=== PATIENT | female | born 1990 | race Caucasian/White ===

== ENCOUNTER 2017-06-09 19:41 | Day surgery (SDC) | payer OTHER, SELFPAY ==
[2017-06-09 19:42] VITALS: BP 137/87; PULSE 109; RESP 20; TEMP 37.1; O2SAT 99; BMI 24.7
[2017-06-09] MEDS: Ondansetron 4 MG/2 ML Vial IV (20:11)
[2017-06-09 21:47] LABS: hCG Titer Quant., Serum 26287 mIU/mL (<9 non-preg)
--- NOTE | 2017-06-09 21:51 | US_ITS ---
STUDY: FIRST TRIMESTER OBSTETRICAL ULTRASOUND REASON FOR EXAM: Female, 27 years old. Severe cramping. Beta hCG level of 26,000 LMP: 04/08/2017 TECHNIQUE: Transvaginal PRIOR ULTRASOUND: None. FINDINGS: Within the endometrial cavity there is an irregular appearing gestational sac with a mean sac diameter of 1.99 cm corresponding to gestational age of 7 weeks and 0 days. There is a peripherally located echogenic rounded soft tissue focus. No yolk sac is visualized. There is no demonstrated embryo ( pole). The estimated gestation age (EGA) by LMP is 8 weeks, 6 days. The estimated date of delivery (THERESE) by LMP is 01/13/2018. The estimated gestation age (EGA) by US is 7 weeks, 0 days. The estimated date of delivery (THERESE) by US is 01/26/2018. The uterus measures 6.5 x 5.5 x 4.4 cm. There is no demonstrated uterine fibroid. The cervix is closed. There is fluid within the lower uterine segment extending into the cervix. The right ovary measures 2.5 x 1.2 x 1.5 cm. There is no right ovarian cyst. There is no visualized right adnexal mass or complex lesion. The left ovary measures 3.2 x 2.1 x 2.4 cm. There is no left ovarian cyst. There is no visualized left adnexal mass or complex lesion. There is fluid in the cul de sac. US/Transvaginal w/Preg US IMPRESSION: Findings suspicious for failure. Electronically Signed: Shital Ann MD at 22:48 EST Tel , Service support ,
--- NOTE | 2017-06-09 21:51 | ED.RN ---
lab called with critical lab results. serum preg [id number]. dr. hastings made aware. orders to be placed
--- NOTE | 2017-06-09 22:53 | ED.DCSUM_ITS ---
- ER Visit Summary Date of Service: 06/09/17 Chief Complaint: Cramping pelvic pain with positive test, quantitative hCG 13,000 on June 05. History of Present Illness: The patient is a 27 F who presents because of severe cramping pelvic pain. She denies orthostatic symptoms. She denies pain referred her shoulder. She had a quantitative hCG on Saturday which was 13, 000. She had an ultrasound that revealed only a gestational sac. She was told that she had demise and was scheduled for an outpatient D&C on June 14 if she did not have a spontaneous AB. She states she has O+ blood. She denies history of endometriosis, ovarian cyst, STD or salpingitis. She does complain of nausea without vomiting. She has no other complaints. Physical Examination: No signs are marked for an elevated blood pressure 137/ 87. She appears uncomfortable. Head is atraumatic normocephalic. Pupils are equal round reactive. Extraocular muscles are intact. TMs are pearly white with landmarks noted. Nares patent with no drainage. Posterior pharynx without erythema or exudate. Uvula is midline. There is no dysphonia or dysphasia. Trachea is midline. There is no stridor with auscultation of the neck. Heart is regular without murmur, gallop or rub. S1 and S2 are normal. Lungs are clear to auscultation with good movement of air bilaterally. Abdomen is soft with significant tenderness lower abdomen bilaterally. There is no CVA tenderness. There is no evidence of inguinal hernia. There is no inguinal lymphadenopathy. Test Results: Quantitative hCG is greater than 26,000. Transvaginal ultrasound was obtained which reveals a gestational sac that is irregular shape. Both ovaries appear normal. There is slightly enlarged. There is no obvious free fluid on my interpretation. Emergency Department Course and Treatment: Quantitative hCG was obtained. Since the quantitative hCG doubled in 3 days an emergent transvaginal ultrasound was obtained. Dr. Ricardo was made aware that there is no official read however concerned that this represents an ectopic . She was informed the patient last ate tacos at 1830. She had simple water prior to presentation. Patient was made n.p.o. IV was established. A CBC was ordered as well as type and screen. Dr. Beck will call the OR team in. Treatment Plan: To operating room Disposition: To operating room Impression: Ectopic This note was generated with Method dictation software. It may contain incorrect words, spelling, and punctuation that were not noted in review of the chart prior to signing ED Disposition - Plan for ED Patient: Chief Complaint: Female C/O Referrals: [facility],Out of [Primary Care Provider] -
[2017-06-09 23:05] LABS: Hematocrit 39.6 % (37-47); Mean Corp Hgb Conc 32.8 g/gl (32-36); Mean Corpuscular Hgb 29.1 pg (27.0-32.0); Mean Corpuscular Volume 88.6 fL (81-99); Mean Platelet Vol. 9.6 fl (6.2-12.0); Platelet Count 242 K/mm3 (150-450); RBC Distribution Width CV 12.9 % (11.6-14.6); RBC Distribution Width SD 41.5 fl (35.1-43.9); Red Blood Count 4.47 M/mm3 (4.2-5.4); White Blood Count 7.2 K/mm3 (4.4-11.0)
[2017-06-09 23:09] LABS: Scan Indicated on CBC? Y/N NO
--- NOTE | 2017-06-09 23:16 | NURSING ---
Dr. Beck at bedside.
[2017-06-09 23:28] VITALS: BP 113/73; PULSE 94; RESP 15; TEMP 37.1; O2SAT 98; BMI 24.7
--- NOTE | 2017-06-09 23:38 | PCM.HP.STD ---
History of Present Illness Date of Admission: 06/09/17 Chief Complaint: LLQ pain The patient is a 27 year old female approx 8 6/7 wk from LMP of 04/08/17, presents to [facility] ED with CC of severe sharp stabbing pain in LLQ starting just prior to 6:30 pm tonight. She has a known and was told by her POLICE JUDGE elsewhere that the is nonviable. Suction D and C scheduled for 06/14/17. She has no h/o endometriosis, PID, pelvic infection. no surgical history. Denies any vaginal bleeding. Past OB history neg First Past POLICE JUDGE history Neg for abn paps or STDs. No endometriosis. Periods regular when on OCP Family History noncontributory Social History: Nonsmoker, denies drugs or alcohol Medical History: negative Surgical History: [place] tooth extraction Past Medical History Allergies No Known Allergies Allergy (Verified 06/09/17 19:42) Surgical History: no surgical history Psychiatric History: No pertinent psych hx POLICE JUDGE History: No pertinent POLICE JUDGE history Smoking Status: Never smoker Alcohol: None Drugs: None - *Family History Maternal History Items: No pertinent history Review of Systems Constitutional: Denies: Anorexia, Chills, Fever Eyes: Denies: Blurred vision HEENT: Denies: Difficulty Hearing Cardiovascular: Denies: Chest Pain Respiratory: Denies: Cough, Shortness of Breath Gastrointestinal: Reports: Abdominal Pain - LLQ starting just prior to 6:30 pm , before dinner. Described at sharp stabbing, cramping Genitourinary: Denies: Dysuria, Frequency Gynecological: Denies: Excessively long or heavy periods - states periods regular on OCP but does not have periods off the pill, Vaginal bleeding Neurological: Denies: Balance problems Psychiatric: Denies: Anxiety, Depression VTE Information - Inpt Only VTE Present on Admission: No VTE Mechan Device Prophylaxis: SCD's VTE Pharm Prophylaxis ordered?: No Subjective: States pain in LLQ. medication given has helped. Objective: Lying in bed, semirecumbent, NAD. conversant. - Physical Exam General: Alert, Oriented x3, Cooperative, No apparent distress HEENT: Atraumatic Neck: Supple Abdomen: Soft, Tender - bilateral lower abdomen, No hernias noted Extremities: No clubbing, No cyanosis, No edema Neurological: Cranial nerves II-XII grossly intact Psych/Mental Status: Normal Affect, Appropriate Vital Signs Temp Pulse Resp BP Pulse Ox 98.8 F 94 15 113/73 98 06/09/17 23:28 06/09/17 23:28 06/09/17 23:28 06/09/17 23:28 06/09/17 23:28 Oxygen Delivery Method Room Air Weight: 73.8 kg Body Mass Index (BMI) 24.7 Laboratory Tests Past 24 Hrs 06/09/17 06/09/17 06/09/17 20:12 22:47 22:55 WBC 7.2 RBC 4.47 Hgb 13.0 Hct 39.6 MCV 88.6 MCH 29.1 MCHC 32.8 RDW 12.9 RDW Differential 41.5 Plt Count 242 MPV 9.6 HCG, Quant 58412 H Blood Type Pending Antibody Screen Pending Assessment/Plan , Quant over 26,000 with no definitive IUP noted. Pt with CC of LLQ pain. highly suspicious for ectopic . Hemodynamically stable. PLAN: suction D and C Diagnostic laparoscopy, possible linear salpingostomy vs salpingectomy to remove ectopic .
--- NOTE | 2017-06-09 23:48 | HP.PCM_ITS ---
History of Present Illness Date of Admission: 06/09/17 Chief Complaint: LLQ pain The patient is a 27 year old female approx 8 6/7 wk from LMP of 04/08/17, presents to [facility] ED with CC of severe sharp stabbing pain in LLQ starting just prior to 6:30 pm tonight. She has a known and was told by her FLORICULTURE TEACHER elsewhere that the is nonviable. Suction D and C scheduled for . She has no h/o endometriosis, PID, pelvic infection. no surgical history. Denies any vaginal bleeding. Past OB history neg First Past FLORICULTURE TEACHER history Neg for abn paps or STDs. No endometriosis. Periods regular when on OCP Family History noncontributory Social History: Nonsmoker, denies drugs or alcohol Medical History: negative Surgical History: [place] tooth extraction Past Medical History Allergies No Known Allergies Allergy (Verified 06/09/17 19:42) Surgical History: no surgical history Psychiatric History: No pertinent psych hx FLORICULTURE TEACHER History: No pertinent FLORICULTURE TEACHER history Smoking Status: Never smoker Alcohol: None Drugs: None - *Family History Maternal History Items: No pertinent history Review of Systems Constitutional: Denies: Anorexia, Chills, Fever Eyes: Denies: Blurred vision HEENT: Denies: Difficulty Hearing Cardiovascular: Denies: Chest Pain Respiratory: Denies: Cough, Shortness of Breath Gastrointestinal: Reports: Abdominal Pain - LLQ starting just prior to 6:30 pm , before dinner. Described at sharp stabbing, cramping Genitourinary: Denies: Dysuria, Frequency Gynecological: Denies: Excessively long or heavy periods - states periods regular on OCP but does not have periods off the pill, Vaginal bleeding Neurological: Denies: Balance problems Psychiatric: Denies: Anxiety, Depression VTE Information - Inpt Only VTE Present on Admission: No VTE Mechan Device Prophylaxis: SCD's VTE Pharm Prophylaxis ordered?: No Subjective: States pain in LLQ. medication given has helped. Objective: Lying in bed, semirecumbent, NAD. conversant. - Physical Exam General: Alert, Oriented x3, Cooperative, No apparent distress HEENT: Atraumatic Neck: Supple Abdomen: Soft, Tender - bilateral lower abdomen, No hernias noted Extremities: No clubbing, No cyanosis, No edema Neurological: Cranial nerves II-XII grossly intact Psych/Mental Status: Normal Affect, Appropriate Vital Signs Temp Pulse Resp BP Pulse Ox 98.8 F 94 15 113/73 98 06/09/17 23:28 06/09/17 23:28 06/09/17 23:28 06/09/17 23:28 06/09/17 23:28 Oxygen Delivery Method Room Air Weight: 73.8 kg Body Mass Index (BMI) 24.7 Laboratory Tests Past 24 Hrs 06/09/17 06/09/17 06/09/17 20:12 22:47 22:55 WBC 7.2 RBC 4.47 Hgb 13.0 Hct 39.6 MCV 88.6 MCH 29.1 MCHC 32.8 RDW 12.9 RDW Differential 41.5 Plt Count 242 MPV 9.6 HCG, Quant 28421 H Blood Type Pending Antibody Screen Pending Assessment/Plan , Quant over 26,000 with no definitive IUP noted. Pt with CC of LLQ pain. highly suspicious for ectopic . Hemodynamically stable. PLAN: suction D and C Diagnostic laparoscopy, possible linear salpingostomy vs salpingectomy to remove ectopic .
[2017-06-10] VITALS (7 sets, daily range): BP systolic 112–128; BP diastolic 61–84; PULSE 75–102; RESP 16–18; TEMP 36.3–37.2; O2SAT 77–102; BMI 24.3
--- NOTE | 2017-06-10 | POC_PTH ---
PATIENT: LISBET HOOKS LOC: [facility] [place] U[place][id number] AGE/SX: 27/F ROOM: RE06/09/[address]: Dr. Albania Beck MD : 1990 BED: DIS: 06/10/2017 SPEC #: [id number] RECD: 06/10/17 09:44 STATUS: MARY KATE ZITA #: [id number] MARTHA: 06/10/17 00:[address]: Albania Beck DEPT: SURGICAL PATHOLOGY RECD BY: Efren Doan ENTERED: 06/10/17 10:06 SP TYPE: PROD CONC OTHR DR: Out of [facility] Doctor Tissues: Product of conception, NOS Procedures: Surgery Specimen Level IV HEADER OPERATION: Diagnostic laparoscopy, dilatation and curettage PRE-OP DIAGNOSIS: Possible ectopic ; missed , abdominal pain TISSUE SUBMITTED: Products of conception MICROSCOPIC DIAGNOSIS Products of conception: [place], gestational endometrium and immature chorionic villi (products of conception). SJ:aldair 06/11/17 MICROSCOPIC DESCRIPTION Slides are reviewed. GROSS DESCRIPTION Received in fixative is one container labeled with the patient's name and designated products of conception. The specimen consists of multiple fragments of pink hemorrhagic soft tissue that in aggregate measure 5 x 5 x 1.5 cm. No tissue is identified. [employer] tissue is submitted in two cassettes. / АНДРЕЙ:aldair 06/10/17 TC:5 CPT: 08891
[2017-06-10] MEDS: Bupiv/Epi 0.5% Mpf 30 ML Vial (02:36)
--- NOTE | 2017-06-10 03:06 | PCM.DC.D&C ---
Discharge Diet: No Restrictions Discharge Activity: May not drive while taking narcotic pain medications., May Shower, May Take a Tub Bath May resume sexual activity in: 1-2 weeks - when comfortable Lifting Restrictions: as comfortable Call your doctor if you observe: Fever of 101 or Higher, Using more than one pad per hour, Uncontrolled pain Change Dressing in (Days):: 4 Remove Dressing in (days):: 4 Cleanse incision/area with: Soap & Water, Keep Dressing Clean & Dry Allergies/Adverse Reactions: Allergies No Known Allergies Allergy (Verified 06/09/17 19:42) Medications to take at Discharge Acetaminophen/Codeine #3 [Tylenol#3] 1 - 2 tab PO Q6H PRN PRN 3 Days #20 tab 06/10/17 The following prescriptions were given: Acetaminophen/Codeine #3 [Tylenol#3] 1 - 2 tab PO Q6H PRN PRN 3 Days #20 tab PRN Reason: Mod-Severe Pain (4-01/22) Primary Care Physician: [facility] ,Out of [Primary Care Provider] - Please Follow Up With: Albania Beck MD - [phone] When: or of this week
--- NOTE | 2017-06-10 03:11 | DCINST_ITS ---
Discharge Diet: No Restrictions Discharge Activity: May not drive while taking narcotic pain medications., May Shower, May Take a Tub Bath May resume sexual activity in: 1-2 weeks - when comfortable Lifting Restrictions: as comfortable Call your doctor if you observe: Fever of 101 or Higher, Using more than one pad per hour, Uncontrolled pain Change Dressing in (Days):: 4 Remove Dressing in (days):: 4 Cleanse incision/area with: Soap & Water, Keep Dressing Clean & Dry Allergies/Adverse Reactions: Allergies No Known Allergies Allergy (Verified 06/09/17 19:42) Medications to take at Discharge Acetaminophen/Codeine #3 [Tylenol#3] 1 - 2 tab PO Q6H PRN PRN 3 Days #20 tab The following prescriptions were given: Acetaminophen/Codeine #3 [Tylenol#3] 1 - 2 tab PO Q6H PRN PRN 3 Days #20 tab PRN Reason: Mod-Severe Pain (4-01/22) Primary Care Physician: [facility] ,Out of [Primary Care Provider] - Please Follow Up With: Albania Beck MD - [phone] When: or of this week
[2017-06-10] MEDS: Acetaminophen/Codeine #3 Tablet 2 TABLET PO (03:50)
--- NOTE | 2017-06-10 08:16 | PCM.OP.BLANK ---
Operative Report Date of Procedure: 06/10/17 PROCEDURE: Diagnostic Laparoscopy Suction D and C PREOPERATIVE DIAGNOSIS: . Pelvic pain, LLQ Pelvic ultrasound with no pole and quant BHCG approx 26,000 Possible ectopic POSTOPERATIVE diagnosis: . Pelvic pain, LLQ Pelvic ultrasound with no pole and quant BHCG approx 26,000 Possible ectopic Surgeon: Albania Beck MD Anesthesia: general anesthesia. Magy Friend MD EBL: minimal Complications: None Drains: Red Conklin catheter used to drain the bladder prior to initiation of the case Fluids: LR replacement Findings; Normal appearing, anteverted uterus. Fallopian tubes and ovaries are WNL. No ectopic noted. Gross inspection of bowel, omentum. liver edge also WNL. photos were taken of the uterus , fallopian tubes and ovaries, and of the RUQ / liver edge Narrative account: After the risks, benefits, alternatives of procedure had been reviewed with the patient, informed consent was obtained. The patient was taken back to the Operative room with an IV running. she was positioned on the operating table in dorsal supine position, where she was given general anesthesia. Once asleep she was repositioned to the dorsal lithotomy position and prepped and draped in the usual sterile fashion. A red Conklin catheter was used to drain the bladder prior to initiating the case. A sponge stick was placed into the vagina to allow manipulation of the uterus and cervix during the case. Attention was then turned to the anterior abdominal wall where 0.25 % Marcaine with epinephrine was instilled at the suprapubic and infraumbilical skin. Skin incisions were then created in the midline at the suprapubic skin and at the infraumbilical skin. While maintaining upward traction of the anterior abdominal wall a Veress needle was inserted through the umbilical incision into the peritoneal cavity. There was free drop of saline, low opening pressure and free flow of CO2 noted. Once the intraabdominal pressure had reached 12 mm of mercury the Veress needle was removed and a bladeless 5 mm trocar was placed through infraumbilical skin incision into the peritoneal cavity. Correct placement was confirmed using the scope. Under direct visualization then with the patient in Trendelenburg position, a bladeless 5 mm trocar was inserted in through suprapubic skin incision into the peritoneal cavity. The uterus was retroverted and both ovaries and fallopian tubes were WNL. There was scant blood at the posterior cul de sac, likely d/t the suprapubic trocar placement. Pelvis and abdomen were inspected and the bowel was manipulated. No ectopic was noted. Photos were taken of the uterus, fallopian tubes, and ovaries and of the RUQ and liver edge. At this point this portion of the procedure was terminated. The pneumoperitoneum was reduced and the instruments and trocars were removed from he the anterior abdominal wall skin. The skin incisions were closed with 4-0 Monocryl in a subcuticular fashion. Dermabond and OpSites were applied to the skin. The was removed from the vagina. A Graves speculum was placed into the vagina and the cervix was visualized. A single toothed tenaculum was applied to the anterior lip of the cervix and the cervix was sequentially dilated to allow admission of a curved 7 mm suction curette tip. A suction D and C was completed. A sharp curettage was then performed. Good crei was noted in all quadrants. One final pass was conducted with the suction curette tip. At this point the procedure was terminated. The single toothed tenaculum was removed from the anterior lip of the cervix and the Graves speculum was removed. Excellent hemostasis was noted. The patient was returned to dorsal supine position. She was awakened from general anesthesia. She was transferred to the recovery room bed in stable condition after tolerating the procedure well. Sponge, lap, needle and instrument counts were correct x two. Medications given preop and intraoperatively included: 8 cc of 1/2 % Marcaine with epinephrine --used as a subcutaneous block. For a complete listing of medications given preop and intraop , please see the anesthesia record.
--- NOTE | 2017-06-14 08:19 | PCM.PN.BLA ---
Progress Note LIKELY INTRAUTERINE MISSED as diagnosis. No ectopic noted at Laparoscopy. PATH results later showed: POC Additional labs at postop visit: Quantitative HCG falling This rules out heterotopic . NO ECTOPIC
== END 2017-06-10 04:46 | disposition home or self-care (01) ==
LOC: ED 20:27 → SDC 23:13 → AC 23:15
PROVIDERS: Emergency Provider Emergency Medicine; Visit Provider Obstetrics & Gynecology
PROC: 10T24ZZ Resection of Products of Conception, Ectopic, Percutaneous Endoscopic Approach (ICD-10-PCS; CPT 59150; principal; 2017-06-10 13:00)
DX: O02.1 Missed abortion (principal); Z3A.08 8 weeks gestation of pregnancy
CPT/HCPCS: 01965; 59820; 76817; 84702; 85027; 86850; 86900; 88305; 99283; J7030; J7120; A4216; J2405

== ENCOUNTER → 2017-06-12 15:12 | Outpatient (CLI) | payer OTHER, SELFPAY ==
[2017-06-12 16:04] LABS: hCG Titer Quant., Serum 2490 mIU/mL (<9 non-preg)
== END ==
PROVIDERS: Visit Provider Obstetrics & Gynecology
DX: Z98.890 Other specified postprocedural states (principal)
CPT/HCPCS: 84702; 84703

== ENCOUNTER 2017-07-09 18:02 | Emergency (ER) | payer OTHER, SELFPAY ==
[2017-07-09 18:02] VITALS: BP 146/86; PULSE 101; RESP 16; TEMP 36.2; O2SAT 99; BMI 23.6
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
[2017-07-09 19:12] VITALS: PULSE 83; RESP 14; O2SAT 99
== END 2017-07-09 19:13 | disposition home or self-care (01) ==
LOC: ED 18:39
PROVIDERS: Emergency Provider Emergency Medicine
DX: S60.222A Contusion of left hand, initial encounter (principal); W22.8XXA Striking against or struck by other objects, initial encounter; Y93.9 Activity, unspecified; Y92.9 Unspecified place or not applicable; Z79.3 Long term (current) use of hormonal contraceptives
CPT/HCPCS: 73130; 99282

== ENCOUNTER 2020-08-15 16:19 | Observation (INO) | payer MEDICAID, SELFPAY ==
[2020-08-15 16:21] VITALS: BP 141/90; PULSE 92; RESP 17; TEMP 36.8; O2SAT 98; BMI 28.0
--- NOTE | 2020-08-15 18:01 | CT_ITS ---
INDICATION: RLQ pain EXAMINATION: CT Abdomen And Pelvis W/ Contrast Injection TECHNIQUE: Helically acquired images were obtained of the abdomen and pelvis after IV contrast. A radiation dose optimization technique was used for this scan. IV Contrast dosage and agent: 100 cc [id number] Oral contrast: Yes COMPARISON: None. FINDINGS: Visualized lung bases: Unremarkable Liver: Unremarkable Gallbladder: Unremarkable Spleen: Unremarkable Pancreas: Unremarkable Adrenal Glands: Unremarkable Kidneys: Unremarkable Vasculature: Unremarkable GI Tract: The tip of the appendix is slightly dilated measuring 7 mm in diameter. No periappendiceal fat stranding. No fluid collection. No free air. Lymphadenopathy: None Peritoneum: No ascites. Bladder: Unremarkable Reproductive organs: Unremarkable Bones/Soft tissues: No suspicious osseous or soft tissue lesions CT/Abdomen/Pelvis WITH Contrast IMPRESSION: Mild dilatation of the tip of the appendix without surrounding inflammatory changes. This is equivocal for tip appendicitis. Electronically Signed: Nakul Leach MD at 20:20 EDT Tel , Service support ,
--- NOTE | 2020-08-15 18:13 | EX.ED.DYSGE1 ---
HPI History of Present Illness Chief Complaint: Abd Pain Informant: patient Narrative Narrative: 30-year-old female presenting with abdominal pain. Pain is in her lower abdomen and right side. She has associated nausea and vomiting. Denies diarrhea or constipation. She has urinary frequency with no dysuria. Denies fever. She is currently on her menstrual cycle and does not believe she could be . Prior similar symptoms: No Recent Illness/Hospitalization: No PFSH PFSH Home Medications desogestrel-ethinyl estradiol [Reclipsen 28 Day Tablet] 1 ea PO DAILY 07/09/17 [History Last Taken 07/08/17] Allergy/AdvReac Type Severity Reaction Status Date / Time No Known Allergies Allergy Verified 08/15/20 16:23 Social History Smoking Status: Never smoker ROS ROS ED Constitutional Constitutional ED: Denies fever(s) Eyes Eyes: Denies change in vision ENT ENT ED: Denies rhinorrhea or sore throat Cardiovascular Cardiovascular: Denies chest pain or palpitations Respiratory/Chest Respiratory/Chest: Denies cough or dyspnea Gastrointestinal Gastrointestinal: Reports abdominal pain, nausea and vomiting; Denies constipation or diarrhea Genitourinary Genitourinary ED: Reports urinary frequency; Denies dysuria Musculoskeletal Musculoskeletal: Denies myalgias Integumentary Denies rash Neurologic Neurologic: Denies headache(s) Psychiatric Psychiatric: Denies suicidal thoughts EXAM Physical Exam Const Vital Signs: 08/15/20 16:21 08/15/20 20:12 Temperature 98.3 F Temperature Source Temporal Pulse Rate 92 73 Respiratory Rate 17 16 Blood Pressure 141/90 H 119/79 Blood Pressure Mean 107 92 Pulse Ox 98 99 Oxygen Delivery Method Room Air Room Air Positive well nourished and well developed General Appearance ED: well developed HEENT Reports normocephalic and head/scalp atraumatic Eyes PERRL and EOMs intact bilaterally Neck supple General: Negative for tenderness Chest Wall inspection of chest normal Resp normal respiratory effort and clear to auscultation bilaterally Cardio regular rate and regular rhythm GI non-tender and non-distended GI Narrative: RLQ and periumbilical tenderness Palpation: soft and tender; Negative for guarding or rebound tenderness present no CVA tenderness Extremity normal to inspection Neuro oriented x3 Sensorium / Orientation: alert Psych mental status grossly normal MDM [facility] Lab Data Attestation: I reviewed the patient's lab results. Labs: Laboratory Results - last 24 hr 08/15/20 08/15/20 08/15/20 18:20 18:20 18:20 WBC 5.8 RBC 4.80 Hgb 14.2 Hct 42.9 MCV 89.4 MCH 29.6 MCHC 33.1 RDW Std Deviation 41.5 RDW Coeff of José Miguel 12.6 Plt Count 315 MPV 9.4 Immature Gran % (Auto) 0.200 Neut % (Auto) 65.2 Lymph % (Auto) 28.7 [place] % (Auto) 4.5 Eos % (Auto) 0.9 Baso % (Auto) 0.5 Absolute Neuts (auto) 3.8 Absolute Lymphs (auto) 1.66 Nucleated RBC % 0 Sodium 142 Potassium 4.1 Chloride 108 H Carbon Dioxide 26.0 Anion Gap 8 BUN 12 Creatinine 0.83 Estim Creat Clear Calc 101.80 Est GFR (MDRD) Af Amer 105 Est GFR (MDRD) Non-Af 87 BUN/Creatinine Ratio 14.5 Glucose 90 Calcium 9.3 Total Bilirubin 0.70 AST 13 L ALT 18 Alkaline Phosphatase 52 Total Protein 7.9 Albumin 4.4 Globulin 3.5 Albumin/Globulin Ratio 1.3 Serum , Qual NEGATIVE Urine Color Urine Clarity Urine pH Ur Specific [place] Urine Protein Urine Glucose (UA) Urine Ketones Urine Occult Blood Urine Nitrite Urine Bilirubin Urine Urobilinogen Ur Leukocyte Esterase Urine RBC Urine WBC Ur Squamous Epith Cells Urine Bacteria Urine Mucus 08/15/20 18:21 WBC RBC Hgb Hct MCV MCH MCHC RDW Std Deviation RDW Coeff of José Miguel Plt Count MPV Immature Gran % (Auto) Neut % (Auto) Lymph % (Auto) [place] % (Auto) Eos % (Auto) Baso % (Auto) Absolute Neuts (auto) Absolute Lymphs (auto) Nucleated RBC % Sodium Potassium Chloride Carbon Dioxide Anion Gap BUN Creatinine Estim Creat Clear Calc Est GFR (MDRD) Af Amer Est GFR (MDRD) Non-Af BUN/Creatinine Ratio Glucose Calcium Total Bilirubin AST ALT Alkaline Phosphatase Total Protein Albumin Globulin Albumin/Globulin Ratio Serum , Qual Urine Color Yellow Urine Clarity Clear Urine pH 6.5 Ur Specific [place] 1.010 Urine Protein Negative Urine Glucose (UA) Normal Urine Ketones Negative Urine Occult Blood 25 H Urine Nitrite Negative Urine Bilirubin Negative Urine Urobilinogen Normal Ur Leukocyte Esterase Negative Urine RBC 0 SEEN Urine WBC 0 SEEN Ur Squamous Epith Cells 0 SEEN Urine Bacteria 0 SEEN Urine Mucus 0 SEEN Microbiology Past 72 Hours 08/15/20 18:15 Nasal Secretion SARS-CoV-2 Antigen (Rapid) - Final Laboratory Results 08/15/20 18:20: WBC 5.8, RBC 4.80, Hgb 14.2, Hct 42.9, MCV 89.4, MCH 29.6, MCHC 33.1, RDW Std Deviation 41.5, RDW Coeff of José Miguel 12.6, Plt Count 315, MPV 9.4, Immature Gran % (Auto) 0.200, Neut % (Auto) 65.2, Lymph % (Auto) 28.7, [place] % (Auto) 4.5, Eos % (Auto) 0.9, Baso % (Auto) 0.5, Absolute Neuts (auto) 3.8, Absolute Lymphs (auto) 1.66, Nucleated RBC % 0 08/15/20 18:20: Sodium 142, Potassium 4.1, Chloride 108 H, Carbon Dioxide 26.0, Anion Gap 8, BUN 12, Creatinine 0.83, Estim Creat Clear Calc 101.80, Est GFR (MDRD) Af Amer 105, Est GFR (MDRD) Non-Af 87, BUN/Creatinine Ratio 14.5, Glucose 90, Calcium 9.3, Total Bilirubin 0.70, AST 13 L, ALT 18, Alkaline Phosphatase 52, Total Protein 7.9, Albumin 4.4, Globulin 3.5, Albumin/Globulin Ratio 1.3 08/15/20 18:20: Serum , Qual NEGATIVE 08/15/20 18:21: Urine Color Yellow, Urine Clarity Clear, Urine pH 6.5, Ur Specific [place] 1.010, Urine Protein Negative, Urine Glucose (UA) Normal, Urine Ketones Negative, Urine Occult Blood 25 H, Urine Nitrite Negative, Urine Bilirubin Negative, Urine Urobilinogen Normal, Ur Leukocyte Esterase Negative, Urine RBC 0 SEEN, Urine WBC 0 SEEN, Ur Squamous Epith Cells 0 SEEN, Urine Bacteria 0 SEEN, Urine Mucus 0 SEEN Radiography Diagnostic Testing: Radiology Impression Abdomen/Pelvis CT 08/15/20 18:01 IMPRESSION: Mild dilatation of the tip of the appendix without surrounding inflammatory changes. This is equivocal for tip appendicitis. Electronically Signed: Nakul Leach MD at 20:20 EDT Tel , Service support , Treatment and Re-Evaluation Comments:: Patient was given Zosyn IV. Discussed with Dr. Stout. Patient will be admitted. Discharge Plan Dx/Rx/DC Orders Clinical Impression: Acute appendicitis Disposition Disposition: Acute Care [facility]
[2020-08-15 18:28] LABS: Bacteria 0 SEEN /hpf (None Seen); Mucous, Urine 0 SEEN /hpf (<or=2+); Red Blood Cells-Urine 0 SEEN /hpf (0-5); Squamous Epithelial Cells - UA 0 SEEN /hpf (5-10); White Blood Cells 0 SEEN /hpf (0-5)
[2020-08-15 18:30] LABS: Color, Urine Yellow (Yellow); Glucose, Dipstick Normal (Normal); Ketone-Dipstick Negative (Negative); Leukocyte Esterase-Dipstick Negative /ul (Negative); Nitrite-Dipstick Negative (Negative); Occult Blood-Urine 25 /ul (Negative); Protein-Dipstick Negative (Negative); Urine Bilirubin Dipstick Negative (Negative); Urine Clarity Clear (Clear); Urine Urobilinogen Normal (Normal); Urine pH 6.5 (5.0 - 8.0)
[2020-08-15 18:37] LABS: Absolute Lymphocyte Count 1.66 X10^3/uL (0.83-4.51); Absolute Neutrophil Count 3.8 X10^3/uL (2.0-7.7); Basophil# 0.03 X10^3/uL; Basophil% 0.5 % (0-1); Eosinophil# 0.05 X10^3/uL; Eosinophils% 0.9 % (0-5); Hematocrit 42.9 % (37-47); Hemoglobin 14.2 g/dL (12.0-15.0); Lymphocyte # 1.66 X10^3/ul (0.83-4.51); Lymphocyte % 28.7 % (19-41); Mean Corp Hgb Conc 33.1 g/dL (32-36); Mean Corpuscular Hgb 29.6 pg (27.0-32.0); Mean Corpuscular Volume 89.4 fL (81-99); Mean Platelet Vol. 9.4 fl (6.2-12.0); Monocyte# 0.26 X10^3/uL; Monocyte% 4.5 % (0-10); NRBC Flagged by Analyzer 0 % (0-5); Neutrophil # 3.78 X10^3/uL (2.7-7.7); Neutrophil % 65.2 % (47-70); Platelet Count 315 K/mm3 (150-450); RBC Distribution Width CV 12.6 % (11.6-14.6); RBC Distribution Width SD 41.5 fl (35.1-43.9); White Blood Count 5.8 K/mm3 (4.4-11.0)
[2020-08-15 18:45] LABS: ALB/GLOB Ratio 1.3 RATIO (0.9-2.4); AST(SGOT) 13 U/L (15-37); Alanine Aminotransfer ALT/SGPT 18 U/L (13-56); Albumin, Serum 4.4 g/dL (3.2-5.0); Alkaline Phosphatase 52 U/L (45-117); Anion Gap 8 (5-15); BUN 12 mg/dL (7-18); BUN/Creat Ratio 14.5 RATIO (10-20); Calcium,Total 9.3 mg/dL (8.5-10.1); Chloride 108 mmol/L (98-107); Creatinine, Serum 0.83 mg/dL (0.55-1.02); EST Glomerular Filtration Rate 87 mL/min (>60); Est Glom Filt Rate - Afr Amer 105 mL/min (>60); Globulin 3.5 g/dL (2.2-4.2); Glucose 90 mg/dL (74-106); Potassium 4.1 mmol/L (3.5-5.1); Protein, Total 7.9 g/dL (6.4-8.2); Sodium Level 142 mmol/L (136-145)
[2020-08-15 19:04] LABS: Internal QC Validated? YES +Cl - CLEAR BKGD; Pregnancy, Serum, hCG Quali. NEGATIVE Negative
[2020-08-15 20:12] VITALS: BP 119/79; PULSE 73; RESP 16; O2SAT 99
[2020-08-15 21:31] VITALS: BP 126/90; PULSE 84; RESP 16; TEMP 37.2; O2SAT 98
[2020-08-15 22:14] VITALS: BMI 28.3
[2020-08-15 22:24] VITALS: BP 117/83; PULSE 98; RESP 16; TEMP 37.1; O2SAT 100
[2020-08-15] MEDS: 0.9% Normal Saline 1,000 ML 120 ML IV (22:46)
[2020-08-15] MEDS: 0.9% Saline Lock 10 ML Syringe IV (23:09)
[2020-08-16] VITALS (8 sets, daily range): BP systolic 101–148; BP diastolic 61–88; PULSE 61–90; RESP 14–18; TEMP 36.6–37; O2SAT 98–100; BMI 28.3
--- NOTE | 2020-08-16 | APP_PTH ---
PATIENT: LISBET HOOKS LOC: MS3 U#:[id number] AGE/SX: 30/F ROOM: OK314 RE08/15/[address]: Dr. Judith Stout MD : 1990 BED: 1 DIS: 08/16/2020 SPEC #: [id number] RECD: 08/16/20 07:06 STATUS: MARY KATE ZITA #: [id number] MARTHA: 08/16/20 00:[address]: Judith Stout DEPT: SURGICAL PATHOLOGY RECD BY: Efren Doan ENTERED: 08/16/20 08:07 SP TYPE: APPENDIX OTHR DR: DAVID Acosta Tissues: Appendix, NOS Procedures: Surgery Specimen Level IV HEADER OPERATION: Lap appendectomy PRE-OP DIAGNOSIS: Acute appendicitis TISSUE SUBMITTED: Appendix MICROSCOPIC DIAGNOSIS Appendix, appendectomy: Focal changes consistent with endometriosis. See comment. АНДРЕЙ:aldair 08/18/2020 COMMENT Acute inflammation is not seen in the appendicular wall or mucosa. Endometriotic changes are noted in the periappendiceal adipose tissue, muscularis propria and adjacent submucosa involving tip of the appendix. The entire specimen is examined. This case has been reviewed in consultation with Dr. Iyer who concurs with the above diagnosis. MICROSCOPIC DESCRIPTION Slides are reviewed. GROSS DESCRIPTION Received in fixative is one container labeled with the patient's name and designated appendix. The specimen consists of an appendix measuring 5.5 cm in length and 0.5 cm in diameter. The attached periappendiceal adipose tissue measures up to 1.5 cm in width. The serosa is congested. No obvious perforation is identified. The lumen contains a small amount of hemorrhagic fluid. No fecalith is identified. Energy Control Officer sections are submitted in one cassette. / АНДРЕЙ:aldair 08/16/20 The rest of the specimen is submitted in cassettes, 2-4. / АНДРЕЙ:aldair 08/17/20 TC:5 CPT: 78939
--- NOTE | 2020-08-16 01:23 | HP.PCM_ITS ---
HPI - General General Date of Admission: 08/15/20 HPI Narrative LISBET HOOKS, is a 30 F who presented to the ER due to abdominal pain. Patient's pain started about 2 PM yesterday patient did have nausea and vomiting with that due to the pain. Patient states she does have a history of ovarian cyst but the pain did continue to increase but she came to the ER. Patient CT abdomen pelvis report question possible appendicitis at the tip of her appendix. Patient's only previous abdominal surgeries were a D&C and patient also had a laparoscopy to look for possible ectopic at that time. [facility] Medical History (Updated 08/15/20 @ 22:41 by James Pina) Anxiety Migraines Allergy/AdvReac Type Severity Reaction Status Date / Time No Known Allergies Allergy Verified 08/15/20 16:23 Surgical History (Updated 08/16/20 @ 01:[address] Judith Stout MD) Hx of dilation and curettage Hx of laparoscopy Social History Smoking Status: Never smoker Vital Signs Vital Signs Vital Signs: 08/15/20 16:21 08/15/20 20:12 08/15/20 21:31 Temperature 98.3 F 99 F Temperature Source Temporal Oral Pulse Rate 92 73 84 Respiratory Rate 17 16 16 Respiratory Effort Respiratory Depth Respiratory Pattern Blood Pressure 141/90 H 119/79 126/90 H Blood Pressure Mean 107 92 102 Blood Pressure Source Blood Pressure Position Blood Pressure Location Pulse Ox 98 99 98 Oxygen Delivery Method Room Air Room Air Room Air 08/15/20 22:24 08/15/20 23:12 Temperature 98.8 F Temperature Source Oral Pulse Rate 98 Respiratory Rate 16 Respiratory Effort Normal Non-Labored Respiratory Depth Normal Respiratory Pattern Normal Blood Pressure 117/83 H Blood Pressure Mean 94 Blood Pressure Source Monitor Blood Pressure Position Semi-Fowlers Blood Pressure Location Left Arm Pulse Ox 100 Oxygen Delivery Method Room Air Room Air Physical Exam Const alert, oriented x3 and no apparent distress HEENT normocephalic and head/scalp atraumatic Resp normal respiratory effort Cardio regular rate GI soft to palpation; Negative for non-distended Palpation: tender RLQ; Negative for guarding Extremity no clubbing, cyanosis or edema Neuro CN's II-XII intact bilaterally Psych mental status grossly normal Lab / Micro Data Result Diagrams: 08/15/20 18:20 08/15/20 18:20 Labs: Laboratory Results - last 24 hr 08/15/20 08/15/20 08/15/20 18:20 18:20 18:20 WBC 5.8 RBC 4.80 Hgb 14.2 Hct 42.9 MCV 89.4 MCH 29.6 MCHC 33.1 RDW Std Deviation 41.5 RDW Coeff of José Miguel 12.6 Plt Count 315 MPV 9.4 Immature Gran % (Auto) 0.200 Neut % (Auto) 65.2 Lymph % (Auto) 28.7 [place] % (Auto) 4.5 Eos % (Auto) 0.9 Baso % (Auto) 0.5 Absolute Neuts (auto) 3.8 Absolute Lymphs (auto) 1.66 Nucleated RBC % 0 Sodium 142 Potassium 4.1 Chloride 108 H Carbon Dioxide 26.0 Anion Gap 8 BUN 12 Creatinine 0.83 Estim Creat Clear Calc 101.80 Est GFR (MDRD) Af Amer 105 Est GFR (MDRD) Non-Af 87 BUN/Creatinine Ratio 14.5 Glucose 90 Calcium 9.3 Total Bilirubin 0.70 AST 13 L ALT 18 Alkaline Phosphatase 52 Total Protein 7.9 Albumin 4.4 Globulin 3.5 Albumin/Globulin Ratio 1.3 Serum , Qual NEGATIVE Urine Color Urine Clarity Urine pH Ur Specific [place] Urine Protein Urine Glucose (UA) Urine Ketones Urine Occult Blood Urine Nitrite Urine Bilirubin Urine Urobilinogen Ur Leukocyte Esterase Urine RBC Urine WBC Ur Squamous Epith Cells Urine Bacteria Urine Mucus 08/15/20 18:21 WBC RBC Hgb Hct MCV MCH MCHC RDW Std Deviation RDW Coeff of José Miguel Plt Count MPV Immature Gran % (Auto) Neut % (Auto) Lymph % (Auto) [place] % (Auto) Eos % (Auto) Baso % (Auto) Absolute Neuts (auto) Absolute Lymphs (auto) Nucleated RBC % Sodium Potassium Chloride Carbon Dioxide Anion Gap BUN Creatinine Estim Creat Clear Calc Est GFR (MDRD) Af Amer Est GFR (MDRD) Non-Af BUN/Creatinine Ratio Glucose Calcium Total Bilirubin AST ALT Alkaline Phosphatase Total Protein Albumin Globulin Albumin/Globulin Ratio Serum , Qual Urine Color Yellow Urine Clarity Clear Urine pH 6.5 Ur Specific [place] 1.010 Urine Protein Negative Urine Glucose (UA) Normal Urine Ketones Negative Urine Occult Blood 25 H Urine Nitrite Negative Urine Bilirubin Negative Urine Urobilinogen Normal Ur Leukocyte Esterase Negative Urine RBC 0 SEEN Urine WBC 0 SEEN Ur Squamous Epith Cells 0 SEEN Urine Bacteria 0 SEEN Urine Mucus 0 SEEN Micro: Microbiology 08/15/20 18:15 SARS-CoV-2 Antigen (Rapid) - Final Nasal Secretion Radiology Impression Abdomen/Pelvis CT 08/15/20 18:01 IMPRESSION: Mild dilatation of the tip of the appendix without surrounding inflammatory changes. This is equivocal for tip appendicitis. Electronically Signed: Nakul Leach MD at 20:20 EDT Tel , Service support , Assessment & Plan Assessment/Plan (1) Acute appendicitis: Status: Acute Code(s): K35.80 - Unspecified acute appendicitis Plan: 1. Discussed procedure laparoscopic appendectomy, possible open, possible bowel resection along with the risk but not limited to bleeding, infection/abscess, injury to another organ (small bowel, colon, etc.), adhesion, hernia at incision sites, and anesthesia. Patient no further questions this time. Judith Stout M.D. Pager: [phone] [facility] [address] [place] [address], [address] [place] [address] Office: [phone] Procedure Criteria Procedure Type: Elective COVID Risk Discussion: The surgeon/proceduralist and patient have discussed in detail the risk of exposure to and/or potential harm posed by the COVID-19 virus with having a surgery/procedure at this time versus the risk of delaying the surgery/procedure. It is not possible to know either the risk of delaying the surgery or procedure or chance of getting an infection with perfect accuracy, but a joint decision was made between the patient and the surgeon/proceduralist to proceed at this time with the scheduled surgery/procedure as indicated on the consent form.
--- NOTE | 2020-08-16 03:25 | NURSING ---
Pt taken down to OR at this time.
[2020-08-16] MEDS: Lactated Ringers 1,000 ML 100 ML IV (04:45)
[2020-08-16] MEDS: Bupiv/Epi 0.25% 30 ML Vial (04:50)
--- NOTE | 2020-08-16 04:57 | OP.PCM_ITS ---
Report of Operation Date of Procedure: 08/16/20 Pre-Operative Diagnosis: Acute appendicitis Post-Operative Diagnosis: Same Surgery/Procedure Performed:: Laparoscopic appendectomy principal gifts officer: None Type of Anesthesia: General/Supplemental Anesthesiologist: Darrell Alba Special Medications: Patient on Zosyn IV for acute appendicitis on the floor Specimen's removed: Appendix Estimated Blood Loss (mL): < 10 CC Fluids Replaced: 500 CC Description of Procedure: Indications: 30-year-old female presented to the ER with new right lower quadrant pain yesterday afternoon. On workup she was found to have acute appendicitis on CT and a leukocytosis of 5.8. Patient was started on antibiotics in the ER for acute appendicitis-Zosyn 4.5 g IV and scheduled on every 8floor Description of the procedure: The patient was placed on operating table in supine position. General anesthesia was induced. A timeout was completed verifying correct patient, procedure, position and special equipment prior to beginning procedure. Abdomen was prepped and draped in usual sterile fashion. Incision was made in the natural skin line below the umbilicus with a 15 blade scalpel. The fascia was elevated and incised. Entry into the peritoneum was confirmed visually and no bowel was noted in the vicinity of the incision. The Euceda trocar was placed under direct vision. Abdomen insufflated with a pressure of 12-15 mmHg. Patient tolerated insertion well. The scope was inserted and the abdomen inspected. No injuries from initial trocar placement were noted. Minimal amount of fluid was seen in the right lower quadrant. An direct visualization 2 -5 mm trocars were placed one above the symphysis pubis and below the hairline and one in the left lower quadrant lateral to the rectus muscle. Care is taken to avoid injury to the bladder and inferior epigastric vessels. The table was placed in Trendelenburg position with the right side elevated. The appendix was grasped with atraumatic grasper and elevated. It was noted to be inflamed. A window was developed in the mesoappendix at the point between the base of the appendix and the cecum. An endoscopic 45 mm linear cutting stapler blue load was then used to divide and staple the base of the appendix. Enseal was used to divide the mesoappendix The appendix was withdrawn into the Euceda trocar after being placed endoscopically retrieval bag. Appendix was sent to pathology. The appendiceal stump was then irrigated and hemostasis was assured. Fluid was suctioned no other pathology was identified. Secondary trochars were removed under direct visualization. No bleeding was noted trocar sites. The laparoscope withdrawn and the umbilical trocar removed. The abdomen was allowed to collapse. Local anesthesia of 20 mL of 0.5% Marcaine was used at the incision sites. The umbilical trocar site was closed with the [id number] 0 Vicryl suture. The skin was closed up to clear sutures of 4-0 Monocryl and Steri-Strips. The patient was extubated. The patient tolerated the procedure well and was taken to the postanesthesia care unit in satisfactory condition. Complications None
[2020-08-16] MEDS: 0.9% Saline Lock 10 ML Syringe IV (06:19)
--- NOTE | 2020-08-16 08:10 | EX.PCM.DISCH ---
Discharge Instructions Outpatient Procedure Reason For Visit: APPENDICITIS Diet Discharge Diet: Light diet - advance as tolerated Activity Discharge Activity: May not drive while taking narcotic pain medications. May shower in (days): 1 (Keep umbilical dressing clean dry and intact for 5 days. Okay to tape off with a Ziploc bag to shower. Or lower shower and upper sponge bath.) Lifting Restrictions: no lifting >20 lbs x 2 wks, no strenuous exercise for 4 wks Dressing / Incision Call your doctor if your incision/area has: Continuous Slow Oozing, Sudden Increased Bleeding, Increased Pain/ Swelling, Increased Redness, Foul Smelling Discharge and Swelling at the incision site Call your doctor if you observe: Fever of 101 or Higher Remove Dressing in: 2 days Cleanse incision/area with: Soap & Water Additional Dressing/Incision Instructions:: Steri-Strips will fall off in 7 to 10 days, if they do not fall off okay to remove after 10 days. Follow Up Care Please Follow Up With: Judith Stout MD When: Call the office for a follow-up appointment 2 weeks; after 5 PM and on the weekends call [phone] with any concerns. Test Results: Test results from this visit will be discussed in further detail at your follow-up appointment, if applicable. Discharge Plan Admission Admit Date/Time: 08/15/20 21:47 Attending Provider: Judith Stout Primary Care Provider: Virgil Jiang Discharge Orders/Prescriptions Prescriptions: New oxycodone-acetaminophen [Percocet] 5-325 mg tablet 1 - 2 tab PO Q6H PRN (Reason: pain) 3 Days Qty: 14 RF: 0 Referrals: Virgil Jiang PA [Primary Care Provider] - Disposition Disposition (needs filled in before D/C Order can be placed): Home, self care
[2020-08-16] MEDS: oxyCODONE 5 MG Tablet PO (08:33)
[2020-08-16] MEDS: Acetaminophen 325 MG Tablet 650 MG PO (08:33)
--- NOTE | 2020-08-16 11:25 | PHA.DC.MC ---
Pharmacy Service has performed discharge medication reconciliation and counseling for this patient. 1. PERCOCET 5/325MG 1-2T PO Q6H PRN PAIN The patient's discharge medication list was reviewed for discrepancies and discrepancies were resolved. Home Medications oxycodone-acetaminophen [Percocet] 1 - 2 tab PO Q6H PRN 3 Days #14 tab 08/16/20 The patient was counseled on the following discharge medications and changes in medications for homegoing were reviewed. The Reason for Use, instructions for use, and potential side effects were reviewed for all new medications. The patient's questions regarding all of their medications were answered. The patient was able to verbally demonstrate an understanding of their discharge medications.
== END 2020-08-16 11:33 | disposition home or self-care (01) ==
LOC: ED 21:00 → MS3 21:55
PROVIDERS: Admitting Provider Surgery; Emergency Provider Emergency Medicine; PCP Physician Assistant; Visit Provider Surgery
PROC: (CPT 44950; principal; 2020-08-16 04:00)
DX: K35.80 Unspecified acute appendicitis (principal)
CPT/HCPCS: 00840; 44970; 74177; 80053; 81001; 84703; 85025; 87426; 88304; 88305; 96361; 96365; 96366; 99218; 99251; 99284; J7030; J7040; J7050; J7120; Q9967; A4216; C1760; G0378; G0463; J2405

== ENCOUNTER → 2020-10-20 | Outpatient (CLI) | payer MEDICAID, SELFPAY ==
[2020-10-20 09:57] VITALS: BMI 27.5
[2020-10-20 11:40] LABS: Amphetamine Urine VISTA NEGATIVE (<1000 ng/mL); Barbiturate Urine VISTA NEGATIVE (< 200 ng/mL); Benzodiazepine Urine VISTA NEGATIVE (< 200 ng/mL); Cocaine Urine VISTA NEGATIVE (< 300 ng/mL); Ecstacy Urine VISTA NEGATIVE (< 500 ng/mL); Methadone Urine VISTA NEGATIVE (< 300 ng/mL); PCP Urine VISTA NEGATIVE (< 25 ng/mL); THC Urine VISTA NEGATIVE (< 50 ng/mL); Vista UDS pH Range 6
[2020-10-24 20:09] LABS: Chlamydia By Nucleic Acid AMP Negative (Negative)
[2020-10-24 20:22] LABS: Gonococcus By Nucleic Acid AMP Negative (Negative)
[2020-10-26 14:25] LABS: HPV Reflexed? NOT INDICATED
== END | disposition home or self-care (01) ==
PROVIDERS: PCP Physician Assistant; Visit Provider Obstetrics & Gynecology
DX: Z34.00 Encounter for supervision of normal first pregnancy, unspecified trimester (principal); Z12.4 Encounter for screening for malignant neoplasm of cervix
CPT/HCPCS: 80307; 87086; 87088; 87491; 87591; 88175; G0145

== ENCOUNTER → 2020-10-31 12:20 | Outpatient (CLI) | payer MEDICAID, SELFPAY ==
[2020-10-20 09:57] VITALS: BMI 27.5
[2020-10-31 13:31] LABS: NATERA MAILED SPECIMEN
[2020-10-31 13:39] LABS: Absolute Lymphocyte Count 1.29 X10^3/uL (0.83-4.51); Basophil# 0.02 X10^3/uL; Basophil% 0.3 % (0-1); Eosinophil# 0.06 X10^3/uL; Eosinophils% 0.9 % (0-5); Hemoglobin 12.6 g/dL (12.0-15.0); Lymphocyte # 1.29 X10^3/ul (0.83-4.51); Lymphocyte % 19.3 % (19-41); Mean Corp Hgb Conc 32.3 g/dL (32-36); Mean Corpuscular Hgb 28.9 pg (27.0-32.0); Mean Corpuscular Volume 89.4 fL (81-99); Mean Platelet Vol. 9.6 fl (6.2-12.0); Monocyte# 0.34 X10^3/uL; Monocyte% 5.1 % (0-10); NRBC Flagged by Analyzer 0 % (0-5); Neutrophil # 4.95 X10^3/uL (2.7-7.7); Platelet Count 253 K/mm3 (150-450); RBC Distribution Width CV 12.7 % (11.6-14.6); RBC Distribution Width SD 42.1 fl (35.1-43.9); Red Blood Count 4.36 M/mm3 (4.2-5.4); White Blood Count 6.7 K/mm3 (4.4-11.0)
[2020-10-31 14:48] LABS: HIV - WCH Non-Reactive (Nonreactive); Hepatitis B Surface Antigen Non-Reactive (Nonreactive); Hepatitis C Antibody Non-Reactive (Nonreactive); Rubella IgG Reactive (Nonreactive); Syphilis Antibodies Non-reactive
== END ==
PROVIDERS: PCP Physician Assistant; Referring Provider Obstetrics & Gynecology; Visit Provider Obstetrics & Gynecology
DX: Z34.81 Encounter for supervision of other normal pregnancy, first trimester (principal)
CPT/HCPCS: 85025; 86703; 86762; 86780; 86803; 86850; 86900; 86901; 87340

== ENCOUNTER → 2021-02-11 10:14 | Outpatient (CLI) | payer OTHER, MEDICAID, SELFPAY ==
[2021-02-11 10:46] LABS: Absolute Lymphocyte Count 1.52 X10^3/uL (0.83-4.51); Absolute Neutrophil Count 6.8 X10^3/uL (2.0-7.7); Basophil# 0.03 X10^3/uL; Basophil% 0.3 % (0-1); Eosinophil# 0.11 X10^3/uL; Eosinophils% 1.2 % (0-5); Hematocrit 32.8 % (37-47); Lymphocyte # 1.52 X10^3/ul (0.83-4.51); Lymphocyte % 16.8 % (19-41); Mean Corp Hgb Conc 33.5 g/dL (32-36); Mean Corpuscular Hgb 31.1 pg (27.0-32.0); Mean Corpuscular Volume 92.7 fL (81-99); Mean Platelet Vol. 9.1 fl (6.2-12.0); Monocyte# 0.46 X10^3/uL; Monocyte% 5.1 % (0-10); NRBC Flagged by Analyzer 0 % (0-5); Neutrophil # 6.84 X10^3/uL (2.7-7.7); Neutrophil % 75.8 % (47-70); Platelet Count 253 K/mm3 (150-450); RBC Distribution Width CV 13.5 % (11.6-14.6); RBC Distribution Width SD 45.8 fl (35.1-43.9); Red Blood Count 3.54 M/mm3 (4.2-5.4)
[2021-02-11 11:02] LABS: Glucose Challenge Gest 1H 50g 90 mg/dL (70-140)
== END ==
PROVIDERS: PCP Physician Assistant; Visit Provider Obstetrics & Gynecology
DX: Z34.01 Encounter for supervision of normal first pregnancy, first trimester (principal)
CPT/HCPCS: 36415; 82950; 85025

== ENCOUNTER 2021-04-17 10:34 | Outpatient (CLI) | payer OTHER, MEDICAID, SELFPAY ==
[2021-04-19 16:45] LABS: PARVOVIRUS B19 IGG 0.2 index (0.0-0.8); PARVOVIRUS B19 IGM 0.1 index (0.0-0.8)
== END 2021-04-17 23:59 | disposition short-term general hospital (02) ==
LOC: LAB 10:37
PROVIDERS: PCP Physician Assistant; Referring Provider Obstetrics & Gynecology; Visit Provider Obstetrics & Gynecology
DX: B08.3 Erythema infectiosum [fifth disease] (principal)
CPT/HCPCS: 36415; 86747

== ENCOUNTER 2021-04-23 01:45 | Inpatient (IN) | payer OTHER, MEDICAID, SELFPAY ==
[2021-04-23] VITALS (49 sets, daily range): BP systolic 112–150; BP diastolic 68–92; PULSE 80–121; RESP 16–18; TEMP 36.2–36.9; O2SAT 80–100; BMI 34.2
[2021-04-23] MEDS: Lactated Ringers 1,000 ML 50 ML IV (01:55)
[2021-04-23 02:26] LABS: Absolute Lymphocyte Count 3.27 X10^3/uL (0.83-4.51); Absolute Neutrophil Count 9.9 X10^3/uL (2.0-7.7); Basophil# 0.05 X10^3/uL; Basophil% 0.3 % (0-1); Eosinophil# 0.13 X10^3/uL; Eosinophils% 0.9 % (0-5); Hematocrit 34.6 % (37-47); Hemoglobin 11.4 g/dL (12.0-15.0); Lymphocyte # 3.27 X10^3/ul (0.83-4.51); Lymphocyte % 22.3 % (19-41); Mean Corp Hgb Conc 32.9 g/dL (32-36); Mean Corpuscular Hgb 28.9 pg (27.0-32.0); Mean Corpuscular Volume 87.8 fL (81-99); Monocyte# 1.17 X10^3/uL; NRBC Flagged by Analyzer 0 % (0-5); Neutrophil # 9.87 X10^3/uL (2.7-7.7); Neutrophil % 67.4 % (47-70); Platelet Count 335 K/mm3 (150-450); RBC Distribution Width CV 12.6 % (11.6-14.6); RBC Distribution Width SD 40.3 fl (35.1-43.9); Red Blood Count 3.94 M/mm3 (4.2-5.4); White Blood Count 14.7 K/mm3 (4.4-11.0)
--- NOTE | 2021-04-23 03:22 | HP.PCM.OB_ITS ---
HPI - General General Date of Admission: 04/23/21 HPI Narrative LISBET HOOKS, is a 31 @ 36 weeks 2 days who presents to l&D in active labor 6 cm dilated and progressed to complete without being able to get an epidural. Her was uncomplicated with the exception of a succenturiate lobe Maternal Data Information THERESE Calculator Estimated Delivery Date Method Current WG Current Estimate 05/19/21 LMP (Certain) 36w 2d PFSH PFSH Medical History (Updated 04/23/21 @ 02:28 by Keysha Valenzuela) Anxiety Depression Fifth disease Migraines Home Medications prenat.vits,nicole,[id number] 1 tab PO DAILY 10/11/20 [History Last Taken 04/22/21] Allergy/AdvReac Type Severity Reaction Status Date / Time No Known Allergies Allergy Verified 04/19/21 15:56 Surgical History Hx of dilation and curettage Hx of laparoscopy S/P appendectomy Social History adopted: No household members: significant other and other current occupational status: employed 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 pets and animals: Yes (reviewed avoid litter box) pets and animals: cat(s) and dog(s) Smoking Status: Never smoker alcohol intake: never substance use type: does not use History 2 Elective abortions Hx Para 0 Spontaneous abortions 1 Hx # Term Pregnancies Ectopic pregnancies Hx # Pregnancies Multiple births # of living children 0 Past Pregnancies Del. Date Name GA/Weeks Outcome Route Bth Weight Gen Labor Lgth Anesthesia Del Locatn Provider FOB Unknown 2017 SAB with D&C spontaneous Visit Details Expected Delivery Route/Plan Labor Preferences- CB/BF classes: declined labor support person: Isma labor intervention preferences: [] pain management options preferred: epidural cut cord/dad catch: cord, dad wants to catch baby : yes PP control planned: discussion discussed possible routes of delivery and associated risks: [] special requests: [] Plans covid vaccine: in series, given flu vaccine: given tdap vaccine: given rhogam: na LARC form signed: yes Problem list reviewed and updated with the most current plan of care details and appropriate orders placed. Relevant counseling for the gestational age provided. Continue routine care and follow up unless otherwise noted in visit notes/problem list details OB Flowsheet Initial Weight: Not Recorded Date -?-?-?-?-?-?-?-?-?-?-?-?- EGA Weight BP Urine Prot -?-?-?-?-?-?-?-?-?-?--?-?- Glucose FHR FuHt Pres Dilation -?-?-?-?-?-?-?-?-?-?-?-?- Effaced St Visit Note 10/20/20 -?-?-?-?-?-?-?-?-?-?-?-?- 9w 6d 181 lb 4 oz 130/94 -?-?-?-?-?-?-?-?-?-?-?-?- 171 -?-?-?-?-?-?-?-?-?-?-?-?- GP - CRL 21mm co nsistent with LMP 11/18/20 -?-?-?-?-?-?-?-?-?-?-?-?- 14w 0d 184 lb 110/86 Negative -?-?-?-?-?-?-?-?-?-?-?-?- Negative 160 -?-?-?-?-?-?-?-?-?-?-?-?- SM- no vb crampi ng 12/16/20 -?-?-?-?-?-?-?-?-?-?-?-?- 18w 0d 187 lb 2 oz Negative -?-?-?-?-?-?-?-?-?-?-?-?- Negative 155 -?-?-?-?-?-?-?-?-?-?-?-?- GP - no cramping or bleeding. Anatomy scan ordered. 01/13/21 -?-?-?-?-?-?-?-?-?-?-?-?- 22w 0d 194 lb 8 oz 134/70 Nega tive -?-?-?-?-?-?-?-?-?-?-?-?- Negative 155 -?-?-?-?-?-?-?-?-?--?-?-?- GP - no LOF, VB, dFM, ctx. Discussed succenturiate placental lobe - MFM rec eval for vasa previa. Awaiting repeat read - pelvic rest until repeat. 02/10/21 -?--?-?-?-?-?-?-?-?-?-?-?- 26w 0d 201 lb 8 oz 130/80 Nega tive -?-?-?-?-?-?-?-?-?-?-?-?- Negative 26 -?-?-?-?-?-?-?-?-?-?-?-?- Sm- no vb lof go od fm nor egular ctx 03/08/21 -?-?-?-?-?-?-?-?-?-?-?-?- 29w 5d 206 lb 6 oz 132/78 Nega tive -?-?-?-?-?-?-?-?-?-?-?-?- Negative 31 -?-?-?-?-?-?-?--?-?-?-?-?- JV- no lof, vagi nal bleeding or dec fm. flu and tdap done today. 03/22/21 -?-?-?-?-?-?-?-?-?-?-?-?- 31w 5d 212 lb 6 oz 108/80 Nega tive -?-?-?-?-?-?-?-?-?-?-?-?- Negative 32 -?-?-?-?-?-?-?-?-?-?-?-?- JV- no lof, vagi nal bleeding, or dec fm. no complaints 04/05/21 -?-?-?-?-?-?-?-?-?-?-?-?- 33w 5d 212 lb 6 oz 124/62 Nega tive -?-?-?-?-?-?-?-?-?-?-?-?- Negative 137 34 -?-?-?-?-?-?-?-?-?-?-?-?- MH-No VB, LOF. G ood FM. 04/19/21 -?-?-?-?-?-?-?-?-?-?-?-?- 35w 5d 220 lb 6 oz 118/80 Nega tive -?-?-?-?-?-?-?-?-?-?-?-?- Negative 141 35 -?-?-?-?-?-?-?-?-?-?-?-?- JV- no lof, vagi nal bleeding, or dec fm. dad wants to deliver the baby 04/23/21 -?-?-?-?-?-?-?-?-?-?-?-?- 36w 2d 218 lb 7.649 oz 120/ 81 141/91 150/92 -?-?-?-?-?-?-?-?-?-?-?-?- -?-?-?-?-?-?-?-?-?-?-?-?- ROS Constitutional Constitutional: Denies change in weight, fatigue, fever(s), headache(s), poor appetite or weakness Eyes Eyes: Denies blurry vision, change in vision, seeing flashes or spots in vision ENT HEENT: Denies dizziness, headache(s), loss taste/smell or sore throat Cardiovascular Cardiovascular: Denies chest pain, dizziness, dyspnea, irregular heart rhythm, leg edema, palpitations, rapid heart rate or vomiting Respiratory/Chest Respiratory/Chest: Denies chest tightness, cough, dyspnea or breast pain Gastrointestinal Gastrointestinal: Denies abdominal pain, anorexia, constipation, cramping, diarrhea, hemorrhoids, vomiting or weight changes Genitourinary Genitourinary: Denies dysuria, flank pain, genital lesions, genital pain, urinary frequency or urinary urgency Musculoskeletal Musculoskeletal: Denies back pain, difficulty walking, joint pain, limited range of motion, muscle cramps or numbness Integumentary Integumentary: Denies lesions or unusual bruising Neurologic Neurologic: Denies abnormal movements, abnormal speech, dizziness, numbness, seizure-like activity or syncope Psychiatric Psychiatric: Denies anxiety, behavioral changes, change in appetite, change in libido, cognitive impairment, confusion, depression, difficulty concentrating, hallucinations or suicidal thoughts Endocrine Endocrinology: Denies excessive sweating, polydipsia or polyuria Hematologic/Lymphatic Hematologic/Lymphatic: Denies easy bleeding, easy bruising or lymphadenopathy Allergic/Immunologic Allergic/Immunologic: Denies itchy eyes, lip swelling, seasonal rhinorrhea, rhinitis, throat swelling, tongue swelling, eczemia, wheezing or asthma Vital Signs Vital Signs Vital Signs: 04/23/21 01:59 04/23/21 02:02 04/23/21 02:10 Temperature 97.1 F L Temperature Source Temporal Pulse Rate 101 H Blood Pressure 120/81 H BP Systolic 120 BP Diastolic 81 Pulse Ox 80 04/23/21 02:11 04/23/21 02:16 04/23/21 02:21 Temperature Temperature Source Pulse Rate 110 H 110 H 97 Blood Pressure BP Systolic BP Diastolic Pulse Ox 100 99 100 04/23/21 02:26 04/23/21 02:32 04/23/21 02:37 Temperature Temperature Source Pulse Rate 106 H 102 H 110 H Blood Pressure BP Systolic BP Diastolic Pulse Ox 99 99 100 04/23/21 02:42 04/23/21 02:43 04/23/21 02:47 Temperature Temperature Source Pulse Rate 115 H 112 H 111 H Blood Pressure BP Systolic BP Diastolic Pulse Ox 97 91 99 04/23/21 02:49 04/23/21 02:54 Temperature Temperature Source Pulse Rate 100 99 Blood Pressure 141/91 H 150/92 H BP Systolic 141 150 BP Diastolic 91 92 Pulse Ox Weight Weight: 218 lb 7.649 oz Body Mass Index (BMI) 34.2 Physical Exam Const alert, oriented x3, no apparent distress and healthy appearing General Appearance: cooperative; Negative for anxious HEENT normocephalic Face and Sinus: normal facial exam Eyes EOMs intact bilaterally and no scleral icterus General Eye: normal appearance of both eyes Neck full ROM and supple Lymph Lymphatic: no lymphadenopathy noted Chest Chest: abnormal inspection of the chest Resp normal respiratory effort Effort and Inspection: able to speak in complete sentences Cardio regular rate GI soft to palpation and non-tender Inspection: gravid Palpation: soft; Negative for tender external exam normal Amniotic Fluid: other cervix is completely dilated the the patient is pushing. station is +2 Back/Spine no CVA tenderness Extremity normal to inspection, full ROM and no clubbing, cyanosis or edema General Extremity: Negative for calf tenderness or edema Skin Lesions: no lesions Rashes: no rashes Psych mental status grossly normal Labs Labs Labs: Blood Type O POSITIVE Antibody Screen NEGATIVE Hct 34.6 % (37-47) L Hgb 11.4 g/dL (12.0-15.0) L Obstetrics US Syphilis Total Ab Non-reactive Rubella IgG Antibody Reactive (Nonreactive) Hep Bs Antigen Non-Reactive (Nonreactive) Neisseria gonorrhoeae DNA (EMILIANO) Negative (Negative) HIV 1&2 Antibody Non-Reactive (Nonreactive) Glucose 1 Hr 50 gm 90 mg/dL (70-140) Group B Strep DNA Pending Assessment & Plan (1) : QUALIFIERS: Weeks of gestation: 35 weeks Qualified Code(s): Z3A.35 - 35 weeks gestation of COMMENT: Declines carrier and AFP., NIPT low risk. anatomy nl repeat 2 wks for addtnl views (2) Supervision of normal first : QUALIFIERS: Trimester: first trimester Qualified Code(s): Z34.01 - Encounter for supervision of normal first , first trimester COMMENT: PRR THERESE 05/19/21, boy, Torin Ashby (3) Anxiety during : COMMENT: No current meds, counseling; stable (4) Abnormal placenta affecting management of mother: QUALIFIERS: Trimester: third trimester Qualified Code(s): O43.93 - Unspecified placental disorder, third trimester COMMENT: placenta is anterior fundal with posterior small succenturiate lobe without evidence of previa. Connecting vessel is noted between the 2 placental parts- absence of vasa previa pelvic rest not indicated (5) Fifth disease: COMMENT: exposure, titers negative repeat in 3 mo. PLAN: Patient presents IAL, plan expectant management for , pitocin/AROM PRN if needed. Pain management: nitrous oxide GBS unknown and starting pcn. Management of any complications: succentrate lobe of placenta without previa or vasaprevia I have reviewed the [facility] and made any clinically relevant updates.
[2021-04-23 03:35] LABS: Group B Strep DNA By PCR Negative (Negative); Internal Control PASS; Specimen Processing Control PASS
[2021-04-23] MEDS: Oxytocin 30 units/NS 500 ml 30 UNITS/500 ML IV.SOLN 334 UNITS IV (04:13)
--- NOTE | 2021-04-23 04:20 | EX.PCM.OBRPT ---
Assessment & Plan (1) : QUALIFIERS: Weeks of gestation: 35 weeks Qualified Code(s): Z3A.35 - 35 weeks gestation of COMMENT: Declines carrier and AFP., NIPT low risk. anatomy nl repeat 2 wks for addtnl views (2) Supervision of normal first : QUALIFIERS: Trimester: first trimester Qualified Code(s): Z34.01 - Encounter for supervision of normal first , first trimester COMMENT: PRR THERESE 05/19/21, boy, Torin Ashby (3) Anxiety during : COMMENT: No current meds, counseling; stable (4) Abnormal placenta affecting management of mother: QUALIFIERS: Trimester: third trimester Qualified Code(s): O43.93 - Unspecified placental disorder, third trimester COMMENT: placenta is anterior fundal with posterior small succenturiate lobe without evidence of previa. Connecting vessel is noted between the 2 placental parts- absence of vasa previa pelvic rest not indicated (5) Fifth disease: COMMENT: exposure, titers negative repeat in 3 mo. Maternal Data Information THERESE Calculator Estimated Delivery Date Method Current WG Current Estimate 05/19/21 LMP (Certain) 36w 2d Vaginal Delivery Maternal Presentation Maternal Presentation: Active Labor Operative Information Date of Procedure: 04/23/21 Pre-Operative Diagnosis: 36 weeks 2 days active labor Post-Operative Diagnosis: 36 weeks 2 days active labor Special Medications: nitrous oxide Estimated Blood Loss: 50cc Findings Description of Procedure: Patient began pushing and delivered the head in the ANA presentation. The head was delivered atraumatically. The anterior and posterior shoulders delivered without complication followed by the rest of the and the was placed on the maternal abdomen. Delayed cord clamping was employed for approximately 60 seconds. Cord was clamped and cut and gentle traction was applied to the cord and the placenta delivered spontaneously immediately following it was noted to be intact with three-vessel cord. The perineum and vagina were inspected and noted to have no laceration at the perineum. There is a small periurethral skid without hemorrhage. Suture was not required EBL was 50cc. Patient and infant tolerated delivery well. Presentation: Vertex and ANA Amniotic Membrane Rupture Type: Spontaneous Amniotic Fluid Description: Clear Placenta Disposition: Sent to Pathology Cord Vessel Description: 3 Vessels Cord Entanglement: None Infant A Gender: Male (1 minute): 5 (5 minute): 7 Delayed Cord Clamping: Yes Post Vaginal Delivery Medications Given After Delivery: IV Pitocin Episiotomy Description: None Laceration: None Complication Complications: None Multi Select Codes Urinary/Genital Urinary/Genital CPT Codes: 18847 Vaginal Delivery [facility]
[2021-04-23] MEDS: Ketorolac 30 MG/ML Syringe IV (04:32)
[2021-04-23 04:53] LABS: Probe Check PASS
[2021-04-23] MEDS: Prenatal Vits Tablet 1 TABLET PO (12:50)
[2021-04-23] MEDS: Ibuprofen 600 MG Tablet PO (17:14)
[2021-04-24 00:35] VITALS: BP 133/72; PULSE 100; RESP 16; TEMP 36.7; O2SAT 98
[2021-04-24] MEDS: Acetaminophen 500 MG Tablet 1000 MG PO ×2 (03:05→22:40)
[2021-04-24 03:11] VITALS: BP 149/89; PULSE 99; RESP 16; TEMP 36.5
[2021-04-24 07:37] VITALS: BP 139/84; PULSE 100; RESP 16; TEMP 36.3; O2SAT 100
--- NOTE | 2021-04-24 09:09 | PCM.PN.OB ---
Subjective Subjective Patient doing well without complaints. Tolerating PO. Ambulating and voiding without difficulty. Feeding well. Denies chest pain, shortness of breath, calf pain/swelling, fevers, chills, lightheadedness. Objective Data Objective Data Vital Signs: Vital Signs Temp Pulse Resp BP Pulse Ox 97.4 F L 100 16 139/84 H 100 04/24/21 07:37 04/24/21 07:37 04/24/21 07:37 04/24/21 07:37 04/24/21 07:37 Oxygen Delivery Method Room Air Weight: 218 lb 7.649 oz Body Mass Index (BMI) 34.2 Intake & Output: Intake and Output for Last 24 Hours 04/22/21 04/23/21 04/24/21 23:59 23:59 23:59 Intake Total 932.65 / 932.65 Output Total 300 / 300 Balance 632.65 / 632.65 Lab / Micro Data Result Diagrams: 04/23/21 01:55 Micro: Microbiology 04/23/21 01:55 Nasal Secretion SARS-CoV-2 Antigen (Rapid) - Final ROS Constitutional Constitutional: Denies chills, fatigue, fever(s), poor appetite or weakness Eyes Eyes: Denies blurry vision, change in vision, seeing flashes or spots in vision ENT HEENT: Denies dizziness, headache(s), loss taste/smell or sore throat Cardiovascular Cardiovascular: Denies chest pain, dizziness, dyspnea, irregular heart rhythm, palpitations or rapid heart rate Respiratory/Chest Respiratory/Chest: Denies chest tightness, cough, dyspnea or breast pain Gastrointestinal Gastrointestinal: Denies abdominal pain, constipation or vomiting Genitourinary Genitourinary: Denies dysuria or flank pain Musculoskeletal Musculoskeletal: Denies difficulty walking, joint pain, limited range of motion or numbness Neurologic Neurologic: Denies abnormal movements, abnormal speech, dizziness, numbness, seizure-like activity or syncope Psychiatric Psychiatric: Denies anxiety, behavioral changes, change in appetite, confusion, depression or suicidal thoughts Physical Exam Const alert, oriented x3 and no apparent distress General Appearance: cooperative and comfortable Resp normal respiratory effort Cardio regular rate GI normal to inspection, nondistended, normoactive bowel sounds GI Narrative: uterus is firm below umbilicus Palpation: soft Bimanual Exam - Adnexa, Other: Negative for cul-de-sac fullness Back/Spine no CVA tenderness and thoraco-lumbar ROM normal Extremity normal to inspection, no clubbing, cyanosis or edema, no calf tenderness and no pedal edema Psych mental status grossly normal, thought process normal, cooperative, affect normal, speech normal, activity/motor behavior normal, denies homicidal ideation and denies suicidal ideation Assessment & Plan (1) state: (2) : QUALIFIERS: Weeks of gestation: 35 weeks Qualified Code(s): Z3A.35 - 35 weeks gestation of COMMENT: Declines carrier and AFP., NIPT low risk. anatomy nl repeat 2 wks for addtnl views (3) Supervision of normal first : QUALIFIERS: Trimester: first trimester Qualified Code(s): Z34.01 - Encounter for supervision of normal first , first trimester COMMENT: PRR THERESE 05/19/21, boy, Torin MARIA TERESA Ashby (4) Anxiety during : COMMENT: No current meds, counseling; stable (5) Abnormal placenta affecting management of mother: QUALIFIERS: Trimester: third trimester Qualified Code(s): O43.93 - Unspecified placental disorder, third trimester COMMENT: placenta is anterior fundal with posterior small succenturiate lobe without evidence of previa. Connecting vessel is noted between the 2 placental parts- absence of vasa previa pelvic rest not indicated (6) Fifth disease: COMMENT: exposure, titers negative repeat in 3 mo. PLAN: s/p PPD # 1 1. routine post delivery care 2. breast feeding- support given 3. rh positive 4. rubella immune 5. unsure if wants to be discharge today. will check in later today
[2021-04-24] MEDS: Prenatal Vits Tablet 1 TABLET PO (10:30)
[2021-04-24 13:43] VITALS: BP 122/77; PULSE 95; RESP 16; TEMP 36.5; O2SAT 97
[2021-04-24 19:20] VITALS: BP 124/68; PULSE 72; RESP 16; TEMP 36.6
--- NOTE | 2021-04-24 21:00 | CM.ED ---
Social Work Brief Assessment Labor and Delivery Unit Refer documentation below for further details. Date of Referral/Notification: 04/24/21 Time of Referral: 10:50a Referred By: Dr. Parker Reason for Referral: MOB with history of anxiety and depression. Date of Intervention: 04/24/21 Time of Intervention: 21:00 Informant: Medical record and mother of baby (MOB) Assessment: Met with MOB and FOB-Isma Meza in room. Introduced role and reason for referral. MOB and FOB have been together 4 years. MOB reports home consists of FOB and their animals and now baby boy, Torin Meza. MOB reports good support from FOB. MOB openly discussed history of anxiety and depression and states was medicated from the age of [age]. MOB reports has continued with counseling throughout her life and still follows with counselor, Nani Ferrell in [place]. MOB reports to have all needs met for baby. [facility] MOB reports baby is doing well. MOB reports plan to breastfeed. Reviewed signs/symptoms of post- depression. Educational handouts provided. MOB and FOB deny any issues or concerns at this time. Nursing updated. Plan: Home with resources provided No further needs requested or indicated. Tesfaye Elliott, [employer], [employer]
[2021-04-25 02:36] VITALS: BP 127/73; PULSE 81; RESP 16; TEMP 36.6
--- NOTE | 2021-04-25 07:30 | PCM.DC ---
Discharge Instructions Diet Discharge Diet: No restrictions Activity Discharge Activity: Return to Normal Activity, May Not Drive (while taking narcotic pain medications.) and May Shower May resume sexual activity in: 4-6 weeks Dressing / Incision Call your doctor if your incision/area has: Continuous Slow Oozing, Sudden Increased Bleeding, Increased Pain/ Swelling, Increased Redness and Foul Smelling Discharge Follow Up Care Please Follow Up With: Digna Parker DO When: Call [phone] to make an appointment with your doctor in 6 weeks. If you had elevated blood pressure or 4th degree laceration, you will need to be seen in 2 weeks. Test Results: Test results from this visit will be discussed in further detail at your follow-up appointment, if applicable. Discharge Plan Admission Admit Date/Time: 04/23/21 01:45 Primary Reason for Your Visit: vaginal delivery Attending Provider: Digna Parker Primary Care Provider: Virgil Jiang Discharge Orders/Prescriptions Prescriptions: New ibuprofen 800 mg tablet 800 mg PO Q8H PRN (Reason: pain) 7 Days Qty: 30 RF: 0 docusate sodium [Colace] 100 mg capsule 100 mg PO DAILY 14 Days Qty: 14 RF: 0 Continued prenat.vits,nicole,sqe-ozhl-nyyje Tablet 1 tab PO DAILY RF: 0 Referrals / Follow Up: Virgil Jiang PA [Primary Care Provider] - Disposition Disposition (needs filled in before D/C Order can be placed): Home, Self Care
--- NOTE | 2021-04-25 07:32 | PN.OBGYN_ITS ---
Subjective Subjective Patient doing well without complaints. Tolerating PO. Ambulating and voiding without difficulty. Feeding well. Denies chest pain, shortness of breath, calf pain/swelling, fevers, chills, lightheadedness. She is ready to be discharge to [facility] for rehabilitation status today Objective Data Objective Data Vital Signs: Vital Signs Temp Pulse Resp BP Pulse Ox 97.8 F 81 16 127/73 H 97 04/25/21 02:36 04/25/21 02:36 04/25/21 02:36 04/25/21 02:36 04/24/21 13:43 Oxygen Delivery Method Room Air Weight: 218 lb 7.649 oz Body Mass Index (BMI) 34.2 Intake & Output: Intake and Output for Last 24 Hours 04/23/21 04/24/21 04/25/21 23:59 23:59 23:59 Intake Total 932.65 / 932.65 Output Total 300 / 300 Balance 632.65 / 632.65 Lab / Micro Data Result Diagrams: 04/23/21 01:55 Micro: Microbiology 04/23/21 01:55 Nasal Secretion SARS-CoV-2 Antigen (Rapid) - Final ROS Constitutional Constitutional: Denies chills, fatigue, fever(s), poor appetite or weakness Eyes Eyes: Denies blurry vision, change in vision, seeing flashes or spots in vision ENT HEENT: Denies dizziness, headache(s), loss taste/smell or sore throat Cardiovascular Cardiovascular: Denies chest pain, dizziness, dyspnea, irregular heart rhythm, palpitations or rapid heart rate Respiratory/Chest Respiratory/Chest: Denies chest tightness, cough, dyspnea or breast pain Gastrointestinal Gastrointestinal: Denies abdominal pain, constipation or vomiting Genitourinary Genitourinary: Denies dysuria or flank pain Musculoskeletal Musculoskeletal: Denies difficulty walking, joint pain, limited range of motion or numbness Neurologic Neurologic: Denies abnormal movements, abnormal speech, dizziness, numbness, seizure-like activity or syncope Psychiatric Psychiatric: Denies anxiety, behavioral changes, change in appetite, confusion, depression or suicidal thoughts Physical Exam Const alert, oriented x3 and no apparent distress General Appearance: cooperative and comfortable Resp normal respiratory effort Cardio regular rate GI normal to inspection, nondistended, normoactive bowel sounds GI Narrative: uterus is firm below umbilicus Palpation: soft Bimanual Exam - Adnexa, Other: Negative for cul-de-sac fullness Back/Spine no CVA tenderness and thoraco-lumbar ROM normal Extremity normal to inspection, no clubbing, cyanosis or edema, no calf tenderness and no pedal edema Psych mental status grossly normal, thought process normal, cooperative, affect normal, speech normal, activity/motor behavior normal, denies homicidal ideation and denies suicidal ideation Assessment & Plan (1) state: (2) Supervision of normal first : QUALIFIERS: Trimester: first trimester Qualified Code(s): Z34.01 - Encounter for supervision of normal first , first trimester COMMENT: PRR THERESE 05/19/21, boy, Torin Ashby (3) Anxiety during : COMMENT: No current meds, counseling; stable PLAN: s/p PPD # 2 1. routine post delivery care 2. breast feeding- support given 3. rh positive 4. rubella immune 5. dc to hotel status today
[2021-04-25 07:53] VITALS: BP 127/81; PULSE 77; RESP 16; TEMP 36.7
== END 2021-04-25 09:50 | disposition home or self-care (01) | DRG 806 ==
PROVIDERS: Admitting Provider Obstetrics & Gynecology; PCP Physician Assistant; Referring Provider Obstetrics & Gynecology; Visit Provider Obstetrics & Gynecology
DX: O43.93 Unspecified placental disorder, third trimester (principal); Z37.0 Single live birth; O99.354 Diseases of the nervous system complicating childbirth; G50.8 Other disorders of trigeminal nerve; Z3A.36 36 weeks gestation of pregnancy
CPT/HCPCS: 59025; 59050; 85025; 86850; 86900; 86901; 87081; 87426; 87653; 99218; J7120; G0378

== ENCOUNTER 2022-07-09 10:08 | Emergency (ER) | payer OTHER, MEDICAID, SELFPAY ==
[2022-07-09 10:08] VITALS: BP 129/93; PULSE 99; RESP 14; TEMP 36.2; O2SAT 100; BMI 28.1
--- NOTE | 2022-07-09 10:27 | CT_ITS ---
STUDY: CT ABDOMEN AND PELVIS WITHOUT CONTRAST REASON FOR EXAM: Female, 32 years old. Left lower quadrant pain with vomiting and diarrhea. RADIATION DOSAGE (If Supplied By Facility): CTDIvol = ( 13.33 ) mGy, DLP = ( 658.18 ) mGycm TECHNIQUE: Transaxial images were obtained from the dome of the diaphragm to the symphysis pubis without oral contrast, and without intravenous contrast. Sagittal and coronal images were reconstructed. Individualized dose optimization techniques were used for this CT. COMPARISON: Comparison is made with prior examination dated August 15, 2020. FINDINGS: The visualized lung bases are unremarkable. The visualized portions of the heart are within normal limits. Normal liver. Normal gallbladder and extrahepatic biliary system. There is mild splenomegaly. Normal pancreas. Normal bilateral adrenal glands. Normal right kidney. Normal left kidney. Normal visualized stomach. Normal small intestine. Normal colon. There are surgical clips in the region of the appendix consistent with a prior appendectomy. Normal abdominal aorta. Normal inferior vena cava. Normal retroperitoneum. Normal urinary bladder. Small follicles are seen in both ovaries. Normal abdominal wall. Normal osseous structures. CT/Abdomen/Pelvis without Cont IMPRESSION: Mild splenomegaly. Status post appendectomy. Electronically Signed: Trino Simon MD at 11:34 EDT ,
--- NOTE | 2022-07-09 10:27 | EX.ED.DYSGE1 ---
HPI History of Present Illness Chief Complaint: Abd Pain Informant: patient Onset/Context/Timing Onset: Today Current Severity: Mild Maximum Severity: Moderate Narrative Narrative: Patient present secondary to abdominal pain with nausea, vomiting, and diarrhea. Patient states she felt well when she went to bed last night. She woke around 430 this morning with severe abdominal pain with vomiting and diarrhea. She has not vomited in the last 2 hours. Patient states most of her pain is in the suprapubic and left lower quadrant region. It does radiate through to her back. PFSH PFSH Medical History Anxiety Depression Fifth disease Migraines Home Medications dicyclomine 20 mg tablet 20 mg PO TID PRN abdominal cramping #14 tabs 07/09/22 [Rx Last Taken Unknown] ondansetron 4 mg disintegrating tablet 4 mg PO Q8H PRN PRN Nausea #10 tabs 07/09/22 [Rx Last Taken Unknown] Allergy/AdvReac Type Severity Reaction Status Date / Time No Known Allergies Allergy Verified 07/09/22 10:10 Surgical History Hx of dilation and curettage Hx of laparoscopy S/P appendectomy Social History adopted: No household members: significant other and other current occupational status: employed 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 pets and animals: Yes (reviewed avoid litter box) pets and animals: cat(s) and dog(s) Smoking Status: Never smoker alcohol intake: never substance use type: does not use ROS ROS ED Constitutional Constitutional ED: Denies chills or fever(s) Eyes Eyes: Denies change in vision or discharge from eye(s) ENT ENT ED: Denies discharge from eye(s), rhinorrhea or sore throat Cardiovascular Cardiovascular: Denies chest pain or palpitations Respiratory/Chest Respiratory/Chest: Denies cough or dyspnea Gastrointestinal Gastrointestinal: Reports abdominal pain, diarrhea, nausea and vomiting Genitourinary Genitourinary ED: Denies dysuria Musculoskeletal Musculoskeletal: Reports back pain; Denies extremity pain Integumentary Denies Abrasions or rash Neurologic Neurologic: Denies headache(s) or weakness Psychiatric Psychiatric: Reports anxiety; Denies depression Allergic/Immunologic Allergic/Immunologic ED: Denies lip swelling or urticaria EXAM Physical Exam Const Vital Signs: 07/09/22 10:08 07/09/22 12:38 Temperature 97.2 F L Temperature Source Temporal Pulse Rate 99 85 Respiratory Rate 14 16 Blood Pressure 129/93 H 123/81 H Blood Pressure Mean 105 95 Pulse Ox 100 100 Oxygen Delivery Method Room Air Room Air Positive well nourished and well developed General Appearance ED: well developed HEENT Reports normocephalic and head/scalp atraumatic Eyes PERRL and EOMs intact bilaterally Neck supple Chest Wall inspection of chest normal and palpation of chest normal Resp normal respiratory effort and clear to auscultation bilaterally Cardio regular rate and regular rhythm GI GI Narrative: Mild lower abdominal tenderness to palpation. No guarding or rebound. Active bowel sounds are noted. Palpation: soft Extremity normal to inspection Neuro oriented x3 and no sensory deficits noted Sensorium / Orientation: alert Motor Exam: strength 5/5 throughout Psych mental status grossly normal Skin no rashes or lesions noted MDM MDM MDM Narrative Medical decision making narrative: Labwork obtained to evaluate for leukocytosis, anemia, and electrolyte derangement. Urinalysis obtained to evaluate for infection/hematuria. CT scan flank obtained. Patient was given morphine and Zofran along with IV fluids. Lab Data Attestation: I reviewed the patient's lab results. Labs: Laboratory Results - last 24 hr 07/09/22 07/09/22 07/09/22 10:30 10:30 10:30 WBC 9.1 RBC 5.33 Hgb 15.3 H Hct 45.9 MCV 86.1 MCH 28.7 MCHC 33.3 RDW Std Deviation 40.1 RDW Coeff of José Miguel 12.9 Plt Count 270 MPV 9.6 Immature Gran % (Auto) 0.300 Neut % (Auto) 91.4 H Lymph % (Auto) 4.5 L [place] % (Auto) 3.4 Eos % (Auto) 0.2 Baso % (Auto) 0.2 Absolute Neuts (auto) 8.3 H Absolute Lymphs (auto) 0.41 L Nucleated RBC % 0 Differential Comment SCANNED Sodium 138 Potassium 3.9 Chloride 111 H Carbon Dioxide 22.0 Anion Gap 5 BUN 14 Creatinine 0.91 Estim Creat Clear Calc 91.19 Est GFR (MDRD) Af Amer 93 Est GFR (MDRD) Non-Af 77 BUN/Creatinine Ratio 15.4 Glucose 104 Calcium 8.9 Total Bilirubin 1.20 H Direct Bilirubin 0.25 AST 16 ALT 21 Alkaline Phosphatase 58 Total Protein 7.9 Albumin 4.1 Globulin 3.8 Lipase 69 L Serum , Qual NEGATIVE Urine Color Urine Clarity Urine pH Ur Specific [place] Urine Protein Urine Glucose (UA) Urine Ketones Urine Occult Blood Urine Nitrite Urine Bilirubin Urine Urobilinogen Ur Leukocyte Esterase Urine RBC Urine WBC Ur Squamous Epith Cells Urine Bacteria Urine Mucus 07/09/22 10:35 WBC RBC Hgb Hct MCV MCH MCHC RDW Std Deviation RDW Coeff of José Miguel Plt Count MPV Immature Gran % (Auto) Neut % (Auto) Lymph % (Auto) [place] % (Auto) Eos % (Auto) Baso % (Auto) Absolute Neuts (auto) Absolute Lymphs (auto) Nucleated RBC % Differential Comment Sodium Potassium Chloride Carbon Dioxide Anion Gap BUN Creatinine Estim Creat Clear Calc Est GFR (MDRD) Af Amer Est GFR (MDRD) Non-Af BUN/Creatinine Ratio Glucose Calcium Total Bilirubin Direct Bilirubin AST ALT Alkaline Phosphatase Total Protein Albumin Globulin Lipase Serum , Qual Urine Color Yellow Urine Clarity Clear Urine pH 8.0 Ur Specific [place] 1.010 Urine Protein Negative Urine Glucose (UA) Normal Urine Ketones 50 H Urine Occult Blood 25 H Urine Nitrite Negative Urine Bilirubin Negative Urine Urobilinogen Normal Ur Leukocyte Esterase Negative Urine RBC 0-5 SEEN Urine WBC 0-5 SEEN Ur Squamous Epith Cells 0-5 SEEN Urine Bacteria 0 SEEN Urine Mucus 0 SEEN Radiography Diagnostic Testing: Clinical Impression(s) from Imaging Studies Abdomen/Pelvis CT 07/09/22 10:27 IMPRESSION: Mild splenomegaly. Status post appendectomy. Electronically Signed: Trino Simon MD at 11:34 EDT , Differential Diagnosis Differential Diagnosis: Ovarian cyst Why less likely: No cyst noted on imaging studies. Differential Diagnosis: Kidney stone Why less likely: No evidence of kidney stone on imaging studies. Treatment and Re-Evaluation :: CBC reveals normal white count. Hemoglobin is slightly concentrated. Chemistry studies unremarkable. test is negative. Urinalysis reveals no sign of hematuria or infection. On repeat evaluation patient states her pain was improved but now starting to come back. She will be given Toradol and Bentyl. I do believe she has a viral GI illness and will continue supportive care. I will write her for Bentyl and Zofran at home. Discharge Plan Triage Chief Complaint: Abd Pain ED Provider: Digna Springer Dx/Rx/DC Orders Clinical Impression: Viral gastroenteritis Instructions: ED Gastroenteritis, Viral (Adult) Prescriptions: New ondansetron 4 mg tablet,disintegrating 4 mg PO Q8H PRN PRN (Reason: Nausea) Qty: 10 0RF dicyclomine 20 mg tablet 20 mg PO TID PRN (Reason: abdominal cramping) Qty: 14 0RF Primary Care Provider: Virgil Jiang Referrals: Virgil Jiang, PA [Primary Care Provider] - 3-5 Days if not improving Disposition Disposition: Home, Self Care
[2022-07-09] MEDS: 0.9% Normal Saline 1,000 ML 1000 ML IV (10:39)
[2022-07-09] MEDS: Ondansetron 4 MG/2 ML Vial IV (10:40)
[2022-07-09] MEDS: Morphine 4 MG/ML Syringe IV (10:40)
[2022-07-09 10:44] LABS: Bacteria 0 SEEN /hpf (None Seen); Mucous, Urine 0 SEEN /hpf (<or=2+)
[2022-07-09 10:49] LABS: Absolute Lymphocyte Count 0.41 X10^3/uL (0.83-4.51); Absolute Neutrophil Count 8.3 X10^3/uL (2.0-7.7); Basophil# 0.02 X10^3/uL; Basophil% 0.2 % (0-1); Eosinophil# 0.02 X10^3/uL; Eosinophils% 0.2 % (0-5); Hematocrit 45.9 % (37-47); Hemoglobin 15.3 g/dL (12.0-15.0); Lymphocyte # 0.41 X10^3/ul (0.83-4.51); Lymphocyte % 4.5 % (19-41); Mean Corp Hgb Conc 33.3 g/dL (32-36); Mean Corpuscular Hgb 28.7 pg (27.0-32.0); Mean Corpuscular Volume 86.1 fL (81-99); Mean Platelet Vol. 9.6 fl (6.2-12.0); Monocyte# 0.31 X10^3/uL; Monocyte% 3.4 % (0-10); NRBC Flagged by Analyzer 0 % (0-5); Neutrophil % 91.4 % (47-70); POSITIVE DIFFERENTIAL YES; Platelet Count 270 K/mm3 (150-450); RBC Distribution Width CV 12.9 % (11.6-14.6); RBC Distribution Width SD 40.1 fl (35.1-43.9); Red Blood Count 5.33 M/mm3 (4.2-5.4); White Blood Count 9.1 K/mm3 (4.4-11.0)
[2022-07-09 10:50] LABS: Differential Indicated SCAN CRITERIA MET
[2022-07-09 10:59] LABS: Color, Urine Yellow (Yellow); Glucose, Dipstick Normal (Normal); Ketone-Dipstick 50 mg/dl (Negative); Leukocyte Esterase-Dipstick Negative /ul (Negative); Nitrite-Dipstick Negative (Negative); Occult Blood-Urine 25 /ul (Negative); Protein-Dipstick Negative (Negative); Urine Bilirubin Dipstick Negative (Negative); Urine Clarity Clear (Clear); Urine Urobilinogen Normal (Normal)
[2022-07-09 11:07] LABS: AST(SGOT) 16 U/L (15-37); Alanine Aminotransfer ALT/SGPT 21 U/L (13-56); Albumin, Serum 4.1 g/dL (3.2-5.0); Alkaline Phosphatase 58 U/L (45-117); Anion Gap 5 (5-15); BUN 14 mg/dL (7-18); BUN/Creat Ratio 15.4 RATIO (10-20); Bilirubin, Direct 0.25 mg/dL (0.00-0.30); Calcium,Total 8.9 mg/dL (8.5-10.1); Chloride 111 mmol/L (98-107); Creatinine, Serum 0.91 mg/dL (0.55-1.02); EST Glomerular Filtration Rate 77 mL/min (>60); Est Glom Filt Rate - Afr Amer 93 mL/min (>60); Estimated Creatinine Clearance 91.19 ml/min; Globulin 3.8 g/dL (2.2-4.2); Glucose 104 mg/dL (74-106); Lipase 69 U/L (73-393); Potassium 3.9 mmol/L (3.5-5.1); Protein, Total 7.9 g/dL (6.4-8.2); Sodium Level 138 mmol/L (136-145)
[2022-07-09 11:15] LABS: Internal QC Validated? YES +Cl - CLEAR BKGD; Pregnancy, Serum, hCG Quali. NEGATIVE Negative
[2022-07-09 11:17] LABS: Red Blood Cells-Urine 0-5 SEEN /hpf (0-5); Squamous Epithelial Cells - UA 0-5 SEEN /hpf (5-10); White Blood Cells 0-5 SEEN /hpf (0-5)
[2022-07-09 11:31] LABS: Differential Comment SCANNED
[2022-07-09] MEDS: 0.9% Normal Saline 1,000 ML 150 ML IV (12:36)
[2022-07-09 12:38] VITALS: BP 123/81; PULSE 85; RESP 16; O2SAT 100
[2022-07-09] MEDS: Ketorolac 30 MG/ML Syringe IV (13:04)
[2022-07-09] MEDS: Dicyclomine 10 MG Capsule 20 MG PO (13:05)
== END 2022-07-09 13:13 | disposition home or self-care (01) ==
PROVIDERS: Emergency Provider Emergency Medicine; PCP Physician Assistant; Visit Provider Emergency Medicine
DX: A08.4 Viral intestinal infection, unspecified (principal); Z90.49 Acquired absence of other specified parts of digestive tract
CPT/HCPCS: 74176; 80048; 80076; 81001; 83690; 84703; 85025; 96361; 96374; 96375; 99284; J7030; A4216; J2405

== ENCOUNTER → 2023-04-19 | Outpatient (CLI) | payer OTHER, SELFPAY ==
--- OUTSIDE RECORDS SUMMARY | 2023-04-19 12:49 | XMS RPT_ITS | CCD ---
Author Name Unknown Address [id number] [place] [address] Organization [facility] Care Team Providers Care Global Compensation Director Name Role Phone RENETTA GIBBS Unavailable Unavailable NO FAMILY PHYSICIAN, 837 Unavailable Unavail able NO FAMILY PHYSICIAN, 837 Unavailable Unavail able GIBBS, RENETTA Unavailable Unavailable NO FAMILY PHYSICIAN, 837 Unavailable Unavail able DAVIS, ELYSSA K Unavailable Unavailable DAVIS, ELYSSA K Unavailable Unavailable DAVIS, ELYSSA K Unavailable Unavailable GIBBS, RENETTA Unavailable Unavailable GIBBS, RENETTA Unavailable Unavailable GIBBS, RENETTA Unavailable Unavailable NO FAMILY PHYSICIAN, 837 Unavailable Unavail able DAVIS, ELYSSA K Unavailable Unavailable NO FAMILY PHYSICIAN, 837 Unavailable Unavail able NO FAMILY PHYSICIAN, 837 Unavailable Unavail able DAVIS, ELYSSA K Unavailable Unavailable NO FAMILY PHYSICIAN, 837 Unavailable Unavail able DAVIS, ELYSSA K Unavailable Unavailable NO FAMILY PHYSICIAN, 837 Unavailable Unavail able NO FAMILY PHYSICIAN, 837 Unavailable Unavail able GIBBS, RENETTA Unavailable Unavailable GIBBS, RENETTA Unavailable Unavailable NO FAMILY PHYSICIAN, 837 Unavailable Unavail able NO FAMILY PHYSICIAN, 837 Unavailable Unavail able Results Test Name Value Interpretation Reference Range Facil ity Encounters Encounter Date Encounter Type Care Provider Facility Start: 09-10-2017 End: 09-11-2017 Ambulatory [facility] Start: 07-15-2017 End: 07-15-2017 Ambulatory RENETTA GIBBS Facility:[id number] Start: 07-06-2017 End: 07-06-2017 Ambulatory RENETTA GIBBS Facility:[facility] Start: 06-13-2017 Ambulatory 837 NO FAMILY PHYSICIAN Facility:[facility] Start: 06-12-2017 Ambulatory 837 NO FAMILY PHYSICIAN Facility:[id number] Start: 06-05-2017 Ambulatory 837 NO FAMILY PHYSICIAN Facility:[facility] Start: 06-05-2017 End: 06-06-2017 Ambulatory RENETTA GIBBS Facility:[id number] Start: 06-05-2017 End: 06-06-2017 Ambulatory ELYSSA DAVIS Facility:[id number] Start: 06-05-2017 End: 06-06-2017 Ambulatory RENETTA GIBBS Facility:[facility] Start: 04-16-2017 End: 04-16-2017 Ambulatory [facility] jeni Start: 12-31-2016 Ambulatory 837 NO FAMILY PHYSICIAN Facility:[facility] Summary Purpose Family History No Family History Records FoundNo Family History Records FoundNo Family History Records FoundNo Family History Records Found Advance Directives No Advanced Directives Records FoundNo Advanced Directives Records FoundNo Advanced Directives Records FoundNo Advanced Directives Records Found Additional Source Comments INFORMATION SOURCE (unrecogn ized section and content) DATE CREATED AUTHOR AUTHOR'S ORGANIZ ATION 10/03/2017 [facility] DATE CREATED AUTHOR AUTHOR'S ORGANIZ ATION 10/04/2017 [facility] DATE CREATED AUTHOR AUTHOR'S ORGANIZ ATION 02/10/[address] [facility] FOR RECORDS PERTAINING TO PATIENTS WHO ARE OR HAVE BEEN ENROLLED IN A CHEMICAL DEPENDENCY/SUBSTANCEABUSE PROGRAM, SOME INFORMATION MAY BE OMITTED. This clinical summary was aggregated from multiple sources. Caution should be exercised in using it in the provision of clinical care. This summary normalizes information from multiple sources, and as a consequence, information in this document may materially change the coding, format and clinical context of patient data. In addition, data may be omitted in some cases. CLINICAL DECISIONS SHOULD BE BASED ON THE PRIMARY CLINICAL RECORDS. [facility] [employer] [facility]. provides no warranty or guarantee of the accuracy or completeness of information in this document.
[2023-04-22 22:07] LABS: Chlamydia By Nucleic Acid AMP Negative (Negative); Gonococcus By Nucleic Acid AMP Negative (Negative)
== END | disposition home or self-care (01) ==
LOC: LABSPEC 12:14
PROVIDERS: PCP Physician Assistant; Referring Provider Advanced Practice Midwife; Visit Provider Advanced Practice Midwife
DX: Z34.90 Encounter for supervision of normal pregnancy, unspecified, unspecified trimester (principal)
CPT/HCPCS: 87086; 87088; 87491; 87591

== ENCOUNTER → 2023-04-25 | Outpatient (CLI) | payer OTHER, MEDICAID, SELFPAY ==
--- OUTSIDE RECORDS SUMMARY | 2023-04-25 16:14 | XMS RPT_ITS | CCD ---
Author Name Unknown Address [address] [place] [address] Organization [facility] Care Team Providers Care Wic Site Coordinator Name Role Phone RENETTA GIBBS Unavailable Unavailable [...] Provider Facility Start: 09-10-2017 End: 09-11-2017 Ambulatory [facility] Start: 07-15-2017 End: 07-15-2017 Ambulatory RENETTA GIBBS Facility:[id number] Start: 07-06-2017 End: 07-06-2017 Ambulatory RENETTA GIBBS Facility:[facility] Start: 06-13-2017 Ambulatory 837 NO FAMILY PHYSICIAN Facility:[facility] Start: 06-12-2017 Ambulatory 837 NO FAMILY PHYSICIAN Facility:[id number] Start: 06-05-2017 Ambulatory 837 NO FAMILY PHYSICIAN Facility:[facility] Start: 06-05-2017 End: 06-06-2017 Ambulatory RENETTA GIBBS Facility:[id number] Start: 06-05-2017 End: 06-06-2017 Ambulatory ELYSSA DAVIS Facility:[id number] Start: 06-05-2017 End: 06-06-2017 Ambulatory RENETTA GIBSB Facility:[facility] Start: 04-16-2017 End: 04-16-2017 Ambulatory [facility] jeni Start: 12-31-2016 Ambulatory 837 NO FAMILY PHYSICIAN Facility:[facility] Summary Purpose Family History No Family History Records FoundNo Family History Records FoundNo Family History Records FoundNo Family History Records Found Advance Directives No Advanced Directives Records FoundNo Advanced Directives Records FoundNo Advanced Directives Records FoundNo Advanced Directives Records Found Additional Source Comments INFORMATION SOURCE (unrecogn ized section and content) DATE CREATED AUTHOR AUTHOR'S ORGANIZ ATION 10/03/2017 [facility] DATE CREATED AUTHOR AUTHOR'S ORGANIZ ATION 10/04/2017 [facility] DATE CREATED AUTHOR AUTHOR'S ORGANIZ ATION 02/10/2021 [facility] FOR RECORDS PERTAINING TO PATIENTS WHO [...] BE BASED ON THE PRIMARY CLINICAL RECORDS. [facility] [employer] [facility]. provides no warranty or guarantee of the accuracy or completeness of information in this document.
[2023-04-25 16:31] LABS: Absolute Lymphocyte Count 1.66 X10^3/uL (0.83-4.51); Absolute Neutrophil Count 5.4 X10^3/uL (2.0-7.7); Basophil# 0.02 X10^3/uL; Basophil% 0.3 % (0-1); Eosinophil# 0.04 X10^3/uL; Eosinophils% 0.5 % (0-5); Hematocrit 37.4 % (37-47); Hemoglobin 12.1 g/dL (12.0-15.0); Lymphocyte # 1.66 X10^3/ul (0.83-4.51); Lymphocyte % 22.2 % (19-41); Mean Corp Hgb Conc 32.4 g/dL (32-36); Mean Corpuscular Hgb 28.5 pg (27.0-32.0); Mean Corpuscular Volume 88.2 fL (81-99); Mean Platelet Vol. 9.6 fl (6.2-12.0); Monocyte# 0.33 X10^3/uL; Monocyte% 4.4 % (0-10); NRBC Flagged by Analyzer 0 % (0-5); Neutrophil % 72.2 % (47-70); Platelet Count 253 K/mm3 (150-450); RBC Distribution Width CV 12.8 % (11.6-14.6); RBC Distribution Width SD 41.5 fl (35.1-43.9); Red Blood Count 4.24 M/mm3 (4.2-5.4); White Blood Count 7.5 K/mm3 (4.4-11.0)
[2023-04-25 17:12] LABS: NATERA MAILED SPECIMEN
[2023-04-25 17:41] LABS: HIV - WCH Non-Reactive (Nonreactive); Hepatitis B Surface Antigen Non-Reactive (Nonreactive); Hepatitis C Antibody Non-Reactive (Nonreactive); Rubella IgG Reactive (Nonreactive); Syphilis Antibodies Non-reactive
== END | disposition home or self-care (01) ==
LOC: LAB 16:05
PROVIDERS: PCP Physician Assistant; Referring Provider Advanced Practice Midwife; Visit Provider Advanced Practice Midwife
DX: Z34.90 Encounter for supervision of normal pregnancy, unspecified, unspecified trimester (principal)
CPT/HCPCS: 36415; 85025; 86703; 86762; 86780; 86803; 86850; 86900; 86901; 87340

== ENCOUNTER → 2023-05-29 | Outpatient (CLI) | payer OTHER, SELFPAY | END | disposition home or self-care (01) | LOC: LABSPEC 11:47 | PROVIDERS: PCP Physician Assistant; Referring Provider Nurse Practitioner Women's Health; Visit Provider Nurse Practitioner Women's Health | DX: O26.899 Other specified pregnancy related conditions, unspecified trimester (principal); R39.15 Urgency of urination; Z3A.00 Weeks of gestation of pregnancy not specified | CPT/HCPCS: 87086; 87088 ==

== ENCOUNTER → 2023-06-11 | Outpatient (CLI) | payer OTHER, SELFPAY | END | disposition home or self-care (01) | PROVIDERS: PCP Physician Assistant; Visit Provider Obstetrics & Gynecology | DX: R35.0 Frequency of micturition (principal) | CPT/HCPCS: 87086 ==

== ENCOUNTER 2023-08-07 10:44 | Outpatient (CLI) | payer OTHER, SELFPAY ==
--- NOTE | 2023-08-07 11:09 | US_ITS ---
STUDY: LIMITED OBSTETRICAL ULTRASOUND REASON FOR EXAM: Female, 33 years old cervical length LMP: Unknown. TECHNIQUE: Transvaginal TECHNICAL QUALITY: Adequate. PRIOR ULTRASOUND: None. FINDINGS: There is a single intrauterine fetus. The fetus is in a cephalic presentation. There is demonstrated cardiac activity with a heart rate of bpm. 150 Cervical length: 3.88 cm. The cervix is closed. US/Transvaginal w/Preg US IMPRESSION: 1. Cervical length: 3.88 cm. The cervix is closed. Electronically Signed: Fausto Bose MD at 14:11 EDT ,
[2023-08-07 11:22] LABS: Mucous, Urine 0 SEEN /hpf (<or=2+); Red Blood Cells-Urine 0 SEEN /hpf (0-5); White Blood Cells 0 SEEN /hpf (0-5)
[2023-08-07 11:23] VITALS: BP 119/62; PULSE 100; RESP 16; TEMP 36.6
[2023-08-07 11:24] VITALS: PULSE 97; O2SAT 98
[2023-08-07 11:32] LABS: Color, Urine Yellow (Yellow); Glucose, Dipstick Normal (Normal); Ketone-Dipstick Negative (Negative); Leukocyte Esterase-Dipstick 500 /ul (Negative); Nitrite-Dipstick Negative (Negative); Occult Blood-Urine 25 /ul (Negative); Protein-Dipstick Negative (Negative); Specific Gravity, Urine 1.015 (1.002-1.030); Urine Bilirubin Dipstick Negative (Negative); Urine Clarity Clear (Clear); Urine Urobilinogen Normal (Normal)
[2023-08-07 11:33] VITALS: BMI 32.1
[2023-08-07 11:42] LABS: Squamous Epithelial Cells - UA 10-25 SEEN /hpf (5-10)
[2023-08-07 11:43] LABS: Bacteria RARE /hpf (None Seen)
--- NOTE | 2023-08-07 13:12 | OB.TRI.NOTE ---
HPI - General HPI Narrative LISBET HOOKS, is a 33 F who presents at 25 weeks gestation with lower pelvic pains that are sharp at time. She tried tylenol and rest and this did not improve symptoms. She also feels her bladder is not emptying. She has a h/o labor. Nurse on L&D was given orders to check a cervical length and ua. Maternal Data Information THERESE Calculator Estimated Delivery Date Method Current WG Current Estimate 11/20/23 LMP (Certain) 25w 0d PFSH PFSH Medical History Anxiety Depression Fifth disease Migraines Home Medications multivit-min no.71-iron fum 28 mg-folate no.1 1 mg-dha 300 mg capsule (PNV-[place]) 1 cap PO DAILY 04/09/23 [History Last Taken 08/06/23 12:00 1 cap] nitrofurantoin monohydrate/macrocrystals 100 mg capsule (Macrobid) 100 mg PO BID #14 caps 08/07/23 [Rx Last Taken Unknown] Allergy/AdvReac Type Severity Reaction Status Date / Time No Known Allergies Allergy Verified 08/07/23 11:35 Family History Unknown Family history of congenital heart defect husbands Nephew Mother demise, greater than 22 weeks, antepartum, single gestation loss @22weeks Surgical History Hx of dilation and curettage Hx of laparoscopy S/P appendectomy [place] teeth extracted Social History adopted: No household members: spouse and children number of children: 1 current occupational status: employed 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 Date Name GA/Weeks Outcome Route Bth Weight Infant Gen Labor Lgth Anesthesia Del Zackaryatcarlos Provider FOB Unknown 2018 SAB with D&C spontaneous 04/24/21 Torin 36 live - 6lbs 14oz Male [facility] Vandcourtney Veljose maria Delivery Date: 04/24/21 Last Updated by: Shruthi Daniel baby special care nursery for tachycardia and feeding difficulty Visit Details Expected Delivery Route/Plan Labor Preferences- CB/BF classes: [] labor support person: [] labor intervention preferences: [] pain management options preferred: [] cut cord/dad catch: [] : [] PP control planned: [] discussed possible routes of delivery and associated risks: [] special requests: [] Plans Covid status: [] Flu vaccine: given Tdap vaccine: [] Rhogam: [] LARC form signed: [] Problem list reviewed and updated with the most current plan of care details and appropriate orders placed. Relevant counseling for the gestational age provided. Continue routine care and follow up unless otherwise noted in visit notes/problem list details OB Flowsheet Initial Weight: Not Recorded Date <del>?</del> EGA Weight BP Urine Prot <del>?</del> Glucose FHR FuHt Pres Dilation <del>?</del> Effaced St Visit Note 04/19/23 <del>?</del> 9w 2d 202 lb 4 oz 136/75 <del>?</del> 175 <del>?</del> kw- CRL cons with dates. doing well. NIPT given. 05/15/23 <del>?</del> 13w 0d 206 lb 123/75 Negative <del>?</del> Negative 155 <del>?</del> JV- no lof, vaginal bleeding, or cramping. we discussed her precip delivery. 05/29/23 <del>?</del> 15w 0d 202 lb 107/79 Negative <del>?</del> Negative <del>?</del> -seen at [facility] and given Macrobid for dysuria and frequncy. Finished yesterday but symptoms never resolved. Urine culture pending. Amoxil sent 06/11/23 <del>?</del> 16w 6d 206 lb 2 oz 110/72 Negative <del>?</del> Negative 150 <del>?</del> Sm- no vb lof quesitonable uti symptoms still 07/09/23 <del>?</del> 20w 6d 208 lb 117/84 Negative <del>?</del> Negative 150 <del>?</del> SM- no vb lof good fm no reuglar ctx ROS Constitutional Constitutional: Reports systems reviewed and no addt'l complaints, except as documented Gastrointestinal Gastrointestinal: Denies bloating, constipation, cramping, diarrhea, nausea or vomiting Genitourinary Genitourinary: Reports other Details: Denies vaginal odor, vaginal bleeding, or vaginal discharge ; Denies difficulty urinating or flank pain Physical Exam HEENT normocephalic Resp normal respiratory effort and normal air movement no CVA tenderness Narrative: cx is closed, thick and high Extremity normal to inspection General Extremity: edema bilateral (trace ) NST FHR Rate Baby A Baseline: 140 Variability:: Moderate Accelerations:: 15 x 15 Decelerations:: None NST Reactive:: Yes FHR Category:: Category I Assessment & Plan (1) UTI in : QUALIFIERS: Trimester: second trimester Qualified Code(s): O23.42 - Unspecified infection of urinary tract in , second trimester COMMENT: likely 2 during the . -plan to start prophylactic treatment based on culture pending from 08/07/23 (2) History of precipitous delivery: COMMENT: With first baby - water broke at 36 weeks and after 20 minutes started with hard labor, presented to hospital at 7 cm. -plan 39 week IOL if makes it to then because wants an epidural this time. -start cervical exams at 35 weeks, discussed cervical length screening, progesterone only if shortened cervical length (3) Anxiety: (4) Hx of one miscarriage: COMMENT: 2018 (5) Supervision of high-risk : QUALIFIERS: Trimester: second trimester Qualified Code(s): O09.92 - Supervision of high risk , unspecified, second trimester COMMENT: PRR, , THERESE 11/20/23, boy,PC Torin, Isma (6) : QUALIFIERS: Weeks of gestation: 20 weeks Qualified Code(s): Z3A.20 - 20 weeks gestation of COMMENT: discussed genetic & declined afp and carrier testing, NIPT low risk, nl anatomy PLAN: Plan cx is 3.8 cm and closed on exam urine looks suspicious for a UTI - starting macrobid. will call with culture. Charges/Coding Multi Select Codes Visit Charges Office Visit/Consults: 65321 OV L3 Est 20min Urinary/Genital Urinary/Genital CPT Codes: 58725-85 non-stress test Interp
[2023-08-07] MEDS: Nitrofurantoin Macrocrystals 100 MG Capsule PO (13:27)
== END 2023-08-07 13:35 | disposition home or self-care (01) ==
LOC: WPOUT 10:49 → WP 10:50
PROVIDERS: Referring Provider Obstetrics & Gynecology; Visit Provider Obstetrics & Gynecology
DX: O23.42 Unspecified infection of urinary tract in pregnancy, second trimester (principal); Z3A.25 25 weeks gestation of pregnancy; O99.342 Other mental disorders complicating pregnancy, second trimester; F41.9 Anxiety disorder, unspecified; Z87.898 Personal history of other specified conditions; Z90.49 Acquired absence of other specified parts of digestive tract
CPT/HCPCS: 76817; 81001; 87086; 87088; 99221; G0378

== ENCOUNTER → 2023-08-31 | Outpatient (CLI) | payer OTHER, SELFPAY ==
[2023-08-31 11:37] LABS: Absolute Lymphocyte Count 1.43 X10^3/uL (0.83-4.51); Absolute Neutrophil Count 6.3 X10^3/uL (2.0-7.7); Basophil# 0.03 X10^3/uL; Basophil% 0.4 % (0-1); Eosinophils% 1.2 % (0-5); Hematocrit 34.1 % (37-47); Hemoglobin 11.1 g/dL (12.0-15.0); Lymphocyte # 1.43 X10^3/ul (0.83-4.51); Lymphocyte % 17.2 % (19-41); Mean Corp Hgb Conc 32.6 g/dL (32-36); Mean Corpuscular Hgb 30.2 pg (27.0-32.0); Mean Corpuscular Volume 92.7 fL (81-99); Mean Platelet Vol. 9.4 fl (6.2-12.0); Monocyte# 0.46 X10^3/uL; Monocyte% 5.5 % (0-10); NRBC Flagged by Analyzer 0 % (0-5); Neutrophil # 6.25 X10^3/uL (2.7-7.7); Neutrophil % 75.1 % (47-70); Platelet Count 269 K/mm3 (150-450); RBC Distribution Width CV 13.6 % (11.6-14.6); RBC Distribution Width SD 46.1 fl (35.1-43.9); Red Blood Count 3.68 M/mm3 (4.2-5.4); White Blood Count 8.3 K/mm3 (4.4-11.0)
[2023-08-31 12:13] LABS: Glucose Challenge Gest 1H 50g 82 mg/dL (70-140)
[2023-09-02 09:49] LABS: HIV - WCH Non-Reactive (Nonreactive); Syphilis Antibodies Non-reactive
== END | disposition home or self-care (01) ==
LOC: LAB 10:26
PROVIDERS: Referring Provider Obstetrics & Gynecology; Visit Provider Obstetrics & Gynecology
DX: Z34.90 Encounter for supervision of normal pregnancy, unspecified, unspecified trimester (principal)
CPT/HCPCS: 36415; 82950; 85025; 86703; 86780; 86850; 86900; 86901

== ENCOUNTER → 2023-10-15 | Outpatient (CLI) | payer OTHER, SELFPAY | END | disposition home or self-care (01) | LOC: LABSPEC 15:45 | PROVIDERS: Referring Provider Nurse Practitioner Women's Health; Visit Provider Nurse Practitioner Women's Health | DX: Z34.93 Encounter for supervision of normal pregnancy, unspecified, third trimester (principal); Z3A.34 34 weeks gestation of pregnancy | CPT/HCPCS: 87081 ==

== ENCOUNTER 2023-11-08 15:00 | Outpatient (CLI) | payer OTHER, SELFPAY ==
[2023-11-08] VITALS (16 sets, daily range): BP systolic 124; BP diastolic 76; PULSE 95–120; RESP 16; TEMP 37.1; O2SAT 96–98; BMI 33.5
[2023-11-08 16:18] LABS: ROM Internal Control Test YES-OK TO RESULT pt. (Internal QC); ROM Patient Test Negative (Negative); Record Kit Lot#, ROM+ K1866
--- NOTE | 2023-11-08 17:58 | OB.TRI.HP_ITS ---
HPI - General HPI Narrative LISBET HOOKS, is a 33 F who presents at 38.2weeks with increased thin discharge mixed with brown discharge. was seen in the office yesterday with vaginal exam- 3cm. Maternal Data Information THERESE Calculator Estimated Delivery Date Method Current WG Current Estimate 11/20/23 LMP (Certain) 38w 2d PFSH PFSH Medical History Depression Fifth disease Anxiety Migraines Home Medications ?Medication ?Instructions ?Recorded ?Last Taken ?Type multivit-min no.71-iron fum 28 1 cap PO DAILY 04/09/23 11/08/23 12:00 History mg-folate no.1 1 mg-dha 300 mg capsule (PNV-[place]) Allergy/AdvReac Type Severity Reaction Status Date / Time No Known Allergies Allergy Verified 11/08/23 15:37 Family History Unknown Family history of congenital heart defect husbands Nephew Mother demise, greater than 22 weeks, antepartum, single gestation loss @22weeks Surgical History [place] teeth extracted S/P appendectomy Hx of dilation and curettage Hx of laparoscopy Social History adopted: No household members: spouse and children number of children: 1 current occupational status: employed 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 Date Name GA/Weeks Outcome Route Bth Weight Infant Gen Labor Lgth Anesthesia Del [place] Provider FOB Unknown 2018 SAB with D&C spontaneous 04/24/21 Torin 36 live - 6lbs 14oz Male [facility] Umm Nieves Delivery Date: 04/24/21 Last Updated by: Shruthi Daniel baby [facility] nursery for tachycardia and feeding difficulty Visit Details Expected Delivery Route/Plan Labor Preferences- CB/BF classes: no labor support person: Isma labor intervention preferences: [] pain management options preferred: epidural cut cord/dad catch:yes : yes PP control planned: discussed discussed possible routes of delivery and associated risks: [] special requests: [] Plans Covid status: [] Flu vaccine: given Tdap vaccine: given Rhogam: NA LARC form signed: yes Problem list reviewed and updated with the most current plan of care details and appropriate orders placed. Relevant counseling for the gestational age provided. Continue routine care and follow up unless otherwise noted in visit notes/problem list details OB Flowsheet Initial Weight: Not Recorded Date -?-?-?-?-?-?-?-?-?-?-?-?- EGA Weight BP Urine Prot -?-?-?-?-?-?-?-?-?-?-?-?- Glucose FHR FuHt Pres Dilation -?--?-?-?-?-?-?-?-?-?-?-?- Effaced St Visit Note 04/19/23 -?-?-?-?-?-?-?-?-?-?-?-?- 9w 2d 202 lb 4 oz 136/75 -?-?-?-?-?-?-?-?-?-?-?-?- 175 -?-?-?-?-?-?-?-?-?-?-?-?- kw- CRL cons wit h dates. doing well. NIPT given. 05/15/23 -?-?-?-?-?-?--?-?-?-?-?-?- 13w 0d 206 lb 123/75 Negative -?-?-?-?-?-?-?-?-?-?-?-?- Negative 155 -?-?-?-?-?-?-?-?-?-?-?-?- JV- no lof, vagi nal bleeding, or cramping. we discussed her precip delivery. 05/29/23 -?-?-?-?-?-?-?-?-?-?-?-?- 15w 0d 202 lb 107/79 Negative -?-?-?-?-?-?-?-?-?-?-?-?- Negative -?-?-?-?-?-?-?-?-?-?-?-?- -seen at [facility] and given Macrobid for dysuria and frequncy. Finished yesterday but symptoms never resolved. Urine culture pending. Amoxil sent 06/11/23 -?-?-?-?-?-?-?-?-?-?-?-?- 16w 6d 206 lb 2 oz 110/72 Nega tive -?-?-?-?-?-?-?-?-?-?-?-?- Negative 150 -?-?-?-?-?-?-?-?-?-?-?-?- Sm- no vb lof qu esitonable uti symptoms still 07/09/23 -?-?-?-?-?-?-?-?-?-?-?-?- 20w 6d 208 lb 117/84 Negative -?-?-?-?-?-?-?-?-?-?-?-?- Negative 150 -?-?-?-?-?-?-?-?-?-?-?-?- SM- no vb lof go od fm no reuglar ctx 08/09/23 -?-?-?-?-?-?-?-?-?-?-?-?- 25w 2d 212 lb 2 oz 133/66 119/77 Trace -?-?-?-?-?-?-?-?-?-?-?-?- Negative 145 24 -?-?-?-?-?-?-?-?-?-?-?-?- JV- no lof, vagi nla bleeding or dec fm. taking abx for uti currently edi needed next visit. 09/02/23 -?-?-?-?-?-?-?-?-?-?-?-?- 28w 5d 216 lb 110/73 -?-?-?-?-?-?-?-?-?-?-?-?- 146 28 -?-?-?-?-?-?-?-?-?-?-?-?- -No VB, LOF. G ood FM. Larc, tdap. Nl 28 wk labs 09/16/23 -?-?-?-?-?-?-?-?-?-?-?-?- 30w 5d 217 lb 6 oz 116/75 Nega tive -?-?-?-?-?-?-?-?-?-?-?-?- Negative 160 30 -?-?-?-?-?-?-?-?-?-?-?-?- -No vB, LOF. G ood FM. Denies concerns 10/02/23 -?-?-?-?-?-?-?-?-?-?-?-?- 33w 0d 218 lb 119/83 Negative -?-?-?-?-?-?-?-?-?-?-?-?- Negative 160 33 -?-?-?-?-?-?-?-?-?-?-?-?- -no vb/lof/ctx . good fm. 10/15/23 -?-?-?-?-?-?-?-?-?-?-?-?- 34w 6d 220 lb 2 oz 126/82 Nega tive -?-?-?-?-?-?-?-?-?-?-?-?- Negative 163 34 0 -?-?-?-?-?-?-?-?-?-?-?-?- -No VB, LOF. S ome irreg CTX. Good FM. GBS done 10/25/23 -?-?-?-?-?-?-?-?-?-?-?-?- 36w 2d 220 lb 2 oz 146/85 Nega tive -?-?-?-?-?-?-?-?-?-?-?-?- Negative 160 36 2 -?-?-?-?-?-?-?-?-?-?-?--?- 60 -2 KW- no vb/ lof/ctx. good fm. labor precautions 10/29/23 -?-?-?-?-?-?-?-?-?-?-?-?- 36w 6d 221 lb 117/79 Negative -?-?-?-?-?-?-?-?-?-?-?-?- Negative 160 37 3 -?-?-?-?-?-?-?-?-?-?-?-?- 60 -2 KW- no vb/ lof/regular ctx. good fm. here for cervical check. anxious due to hx of delivery 11/07/23 -?-?-?-?-?-?-?-?-?-?-?-?- 38w 1d 113/62 Negative -?-?-?-?-?-?-?-?-?-?-?-?- Negative 150 38 3 -?-?-?-?-?-?-?-?-?-?-?-?- 60 -2 JV- no lof or dec fm. some brown dc since yesterday an see bloody show on exam. NST FHR Rate Baby A Variability:: Moderate Accelerations:: 15 x 15 Decelerations:: None NST Reactive:: Yes FHR Category:: Category I Assessment & Plan (1) No leakage of amniotic fluid into vagina: COMMENT: ROM plus negative. unchanged cervical exam. safe for d/c home. PLAN: Patient presents for triage evaluation secondary to leaking of fluid. rom plus neg. FHT: Moderate variability reactive no decelerations category I tracing [place]: irreg Contractions Assessment and plan: Reactive NST, reassuring maternal and status patient discharged to home to follow-up PRN and in office next week for appt. See problem list details for additional plan information. Charges/Coding Procedures Urinary/Genital 52xxx-59xxx: 12680-81 non-stress test Interp Multi Select Codes Urinary/Genital Urinary/Genital CPT Codes: 85568-60 non-stress test Interp
--- NOTE | 2023-11-08 17:58 | OB.TRI.NOTE ---
HPI - General HPI Narrative LISBET HOOKS, is a 33 F who presents at 38.2weeks with increased thin discharge mixed with brown discharge. was seen in the office yesterday with vaginal exam- 3cm. Maternal Data Information THERESE Calculator Estimated Delivery Date Method Current WG Current Estimate 11/20/23 LMP (Certain) 38w 2d PFSH PFSH Medical History Depression Fifth disease Anxiety Migraines Home Medications ?Medication ?Instructions ?Recorded ?Last Taken ?Type multivit-min no.71-iron fum 28 1 cap PO DAILY 04/09/23 11/08/23 12:00 History mg-folate no.1 1 mg-dha 300 mg capsule (PNV-[place]) Allergy/AdvReac Type Severity Reaction Status Date / Time No Known Allergies Allergy Verified 11/08/23 15:37 Family History Unknown Family history of congenital heart defect husbands Nephew Mother demise, greater than 22 weeks, antepartum, single gestation loss @22weeks Surgical History [place] teeth extracted S/P appendectomy Hx of dilation and curettage Hx of laparoscopy Social History adopted: No household members: spouse and children number of children: 1 current occupational status: employed 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 Date Name GA/Weeks Outcome Route Bth Weight Infant Gen Labor Lgth Anesthesia Del Locatn Provider FOB Unknown 2018 SAB with D&C spontaneous 04/24/21 Torin 36 live - 6lbs 14oz Male [facility] Umm Nieves Delivery Date: 04/24/21 Last Updated by: Shruthi Daniel baby special care nursery for tachycardia and feeding difficulty Visit Details Expected Delivery Route/Plan Labor Preferences- CB/BF classes: no labor support person: Isma labor intervention preferences: [] pain management options preferred: epidural cut cord/dad catch:yes : yes PP control planned: discussed discussed possible routes of delivery and associated risks: [] special requests: [] Plans Covid status: [] Flu vaccine: given Tdap vaccine: given Rhogam: NA LARC form signed: yes Problem list reviewed and updated with the most current plan of care details and appropriate orders placed. Relevant counseling for the gestational age provided. Continue routine care and follow up unless otherwise noted in visit notes/problem list details OB Flowsheet Initial Weight: Not Recorded Date <del>?</del> EGA Weight BP Urine Prot <del>?</del> Glucose FHR FuHt Pres Dilation <del>?</del> Effaced St Visit Note 04/19/23 <del>?</del> 9w 2d 202 lb 4 oz 136/75 <del>?</del> 175 <del>?</del> kw- CRL cons with dates. doing well. NIPT given. 05/15/23 <del>?</del> 13w 0d 206 lb 123/75 Negative <del>?</del> Negative 155 <del>?</del> JV- no lof, vaginal bleeding, or cramping. we discussed her precip delivery. 05/29/23 <del>?</del> 15w 0d 202 lb 107/79 Negative <del>?</del> Negative <del>?</del> -seen at [facility] and given Macrobid for dysuria and frequncy. Finished yesterday but symptoms never resolved. Urine culture pending. Amoxil sent 06/11/23 <del>?</del> 16w 6d 206 lb 2 oz 110/72 Negative <del>?</del> Negative 150 <del>?</del> Sm- no vb lof quesitonable uti symptoms still 07/09/23 <del>?</del> 20w 6d 208 lb 117/84 Negative <del>?</del> Negative 150 <del>?</del> SM- no vb lof good fm no reuglar ctx 08/09/23 <del>?</del> 25w 2d 212 lb 2 oz 133/66 119/77 Trace <del>?</del> Negative 145 24 <del>?</del> JV- no lof, vaginla bleeding or dec fm. taking abx for uti currently edi needed next visit. 09/02/23 <del>?</del> 28w 5d 216 lb 110/73 <del>?</del> 146 28 <del>?</del> MH-No VB, LOF. Good FM. Larc, tdap. Nl 28 wk labs 09/16/23 <del>?</del> 30w 5d 217 lb 6 oz 116/75 Negative <del>?</del> Negative 160 30 <del>?</del> MH-No vB, LOF. Good FM. Denies concerns 10/02/23 <del>?</del> 33w 0d 218 lb 119/83 Negative <del>?</del> Negative 160 33 <del>?</del> KW-no vb/lof/ctx. good fm. 10/15/23 <del>?</del> 34w 6d 220 lb 2 oz 126/82 Negative <del>?</del> Negative 163 34 0 <del>?</del> MH-No VB, LOF. Some irreg CTX. Good FM. GBS done 10/25/23 <del>?</del> 36w 2d 220 lb 2 oz 146/85 Negative <del>?</del> Negative 160 36 2 <del>?</del> 60 -2 KW- no vb/lof/ctx. good fm. labor precautions 10/29/23 <del>?</del> 36w 6d 221 lb 117/79 Negative <del>?</del> Negative 160 37 3 <del>?</del> 60 -2 KW- no vb/lof/regular ctx. good fm. here for cervical check. anxious due to hx of delivery 11/07/23 <del>?</del> 38w 1d 113/62 Negative <del>?</del> Negative 150 38 3 <del>?</del> 60 -2 JV- no lof or dec fm. some brown dc since yesterday an see bloody show on exam. NST FHR Rate Baby A Variability:: Moderate Accelerations:: 15 x 15 Decelerations:: None NST Reactive:: Yes FHR Category:: Category I Assessment & Plan (1) No leakage of amniotic fluid into vagina: COMMENT: ROM plus negative. unchanged cervical exam. safe for d/c home. PLAN: Patient presents for triage evaluation secondary to leaking of fluid. rom plus neg. FHT: Moderate variability reactive no decelerations category I tracing [place]: irreg Contractions Assessment and plan: Reactive NST, reassuring maternal and status patient discharged to home to follow-up PRN and in office next week for appt. See problem list details for additional plan information. Charges/Coding Procedures Urinary/Genital 52xxx-59xxx: 72925-16 non-stress test Interp Multi Select Codes Urinary/Genital Urinary/Genital CPT Codes: 00304-17 non-stress test Interp
== END 2023-11-08 16:48 | disposition home or self-care (01) ==
LOC: WPOUT 15:12 → WP 15:12
PROVIDERS: Referring Provider Registered Nurse; Visit Provider Registered Nurse
DX: O26.893 Other specified pregnancy related conditions, third trimester (principal); Z3A.38 38 weeks gestation of pregnancy
CPT/HCPCS: 59025; 59050; 84112; 99221; G0378

== ENCOUNTER 2023-11-18 12:02 | Inpatient (IN) | payer OTHER, SELFPAY ==
[2023-11-18] VITALS (35 sets, daily range): BP systolic 99–146; BP diastolic 55–86; PULSE 97–121; RESP 16; TEMP 36.8–36.9; O2SAT 83–98; BMI 33.7
--- NOTE | 2023-11-18 12:32 | HP.PCM.OB_ITS ---
HPI - General General Date of Admission: 11/18/23 Date of Service: 11/18/23 HPI Narrative LISBET HOOKS, is a 33 F 39.5 who presents to unit for elective IOL for hx of precipitous delivery. in the office. Maternal Data Information THERESE Calculator Estimated Delivery Date Method Current WG Current Estimate 11/20/23 LMP (Certain) 39w 5d Final THERESE: 11/18/23 Final THERESE Source: US >20 weeks Gestational age: 39.5 weeks PFSH PFSH Medical History Depression Fifth disease Anxiety Migraines Home Medications ?Medication ?Instructions ?Recorded ?Last Taken ?Type multivit-min no.71-iron fum 28 1 cap PO DAILY vitamin 04/09/23 11/08/23 12:00 History mg-folate no.1 1 mg-dha 300 mg capsule (PNV-[place]) Allergy/AdvReac Type Severity Reaction Status Date / Time No Known Allergies Allergy Verified 11/18/23 12:15 Family History Unknown Family history of congenital heart defect husbands Nephew Mother demise, greater than 22 weeks, antepartum, single gestation loss @22weeks Surgical History [place] teeth extracted S/P appendectomy Hx of dilation and curettage Hx of laparoscopy Social History adopted: No household members: spouse and children number of children: 1 current occupational status: employed 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 Date Name GA/Weeks Outcome Route Bth Weight Gen Labor Lgth Anesthesia Del Zackaryatcarlos Provider FOB Unknown 2018 SAB with D&C spontaneous 04/24/21 Torin 36 live - 6lbs 14oz Male [facility] V[place] Velde Delivery Date: 04/24/21 Last Updated by: Shruthi Daniel baby special care nursery for tachycardia and feeding difficulty Visit Details Expected Delivery Route/Plan Labor Preferences- CB/BF classes: no labor support person: Isma labor intervention preferences: [] pain management options preferred: epidural cut cord/dad catch:yes : yes PP control planned: discussed discussed possible routes of delivery and associated risks: [] special requests: [] Plans Covid status: [] Flu vaccine: given Tdap vaccine: given Rhogam: NA LARC form signed: yes Problem list reviewed and updated with the most current plan of care details and appropriate orders placed. Relevant counseling for the gestational age provided. Continue routine care and follow up unless otherwise noted in visit notes/problem list details OB Flowsheet Initial Weight: Not Recorded Date -?-?-?-?-?-?-?-?-?-?-?-?- EGA Weight BP Urine Prot -?-?-?-?-?-?-?-?-?-?-?-?- Glucose FHR FuHt Pres Dilation -?-?-?-?-?-?-?-?-?-?-?-?- Effaced St Visit Note 04/19/23 -?-?-?-?-?-?-?-?-?-?-?-?- 9w 2d 202 lb 4 oz 136/75 -?-?-?-?-?-?-?-?-?-?-?-?- 175 -?-?-?-?-?-?-?-?-?-?-?-?- kw- CRL cons wit h dates. doing well. NIPT given. 05/15/23 -?-?-?-?-?-?-?-?-?-?-?-?- 13w 0d 206 lb 123/75 Negative -?-?-?-?-?-?-?-?-?-?-?-?- Negative 155 -?-?-?-?-?-?-?-?-?-?-?--?- JV- no lof, vagi nal bleeding, or cramping. we discussed her precip delivery. 05/29/23 -?-?-?-?-?-?-?-?-?-?-?-?- 15w 0d 202 lb 107/79 Negative -?-?-?-?-?-?-?-?-?-?-?-?- Negative -?-?-?-?-?-?-?-?-?-?-?-?- -seen at [facility] and given Macrobid for dysuria and frequncy. Finished yesterday but symptoms never resolved. Urine culture pending. Amoxil sent 06/11/23 -?-?-?-?-?-?-?-?-?-?-?-?- 16w 6d 206 lb 2 oz 110/72 Nega tive -?-?-?-?-?-?-?-?-?-?-?-?- Negative 150 -?-?-?-?-?-?-?-?-?-?-?-?- Sm- no vb lof qu esitonable uti symptoms still 07/09/23 -?-?-?-?-?-?-?-?-?-?-?-?- 20w 6d 208 lb 117/84 Negative -?-?-?-?-?-?-?-?-?-?-?-?- Negative 150 -?-?-?-?-?-?-?-?-?-?-?-?- SM- no vb lof go od fm no reuglar ctx 08/09/23 -?-?-?-?-?-?-?-?-?-?-?-?- 25w 2d 212 lb 2 oz 133/66 119/77 Trace -?-?-?-?-?-?-?-?-?-?-?-?- Negative 145 24 -?-?-?-?-?-?-?-?-?-?-?-?- JV- no lof, vagi nla bleeding or dec fm. taking abx for uti currently edi needed next visit. 09/02/23 -?-?-?-?-?-?-?-?-?-?-?-?- 28w 5d 216 lb 110/73 -?-?-?-?-?-?-?-?-?-?-?-?- 146 28 -?-?-?-?-?-?-?-?-?-?-?-?- -No VB, LOF. G ood FM. Larc, tdap. Nl 28 wk labs 09/16/23 -?-?-?-?-?-?-?-?-?-?-?-?- 30w 5d 217 lb 6 oz 116/75 Nega tive -?-?-?-?-?-?-?-?-?-?-?-?- Negative 160 30 -?-?-?-?-?-?-?-?-?-?-?-?- -No vB, LOF. G ood FM. Denies concerns 10/02/23 -?-?-?-?-?-?-?-?-?-?-?-?- 33w 0d 218 lb 119/83 Negative -?-?-?-?-?-?-?-?-?-?-?-?- Negative 160 33 -?-?-?-?-?-?-?-?-?-?-?-?- KW-no vb/lof/ctx . good fm. 10/15/23 -?-?-?-?-?-?-?-?-?-?-?-?- 34w 6d 220 lb 2 oz 126/82 Nega tive -?-?-?-?-?-?-?-?-?-?-?-?- Negative 163 34 0 -?-?-?-?-?-?-?-?-?-?-?-?- -No VB, LOF. S ome irreg CTX. Good FM. GBS done 10/25/23 -?-?-?-?-?-?-?-?-?-?-?-?- 36w 2d 220 lb 2 oz 146/85 Nega tive -?-?-?-?-?-?-?-?-?-?-?-?- Negative 160 36 2 -?-?-?-?-?-?-?-?-?-?-?-?- 60 -2 KW- no vb/ lof/ctx. good fm. labor precautions 10/29/23 -?-?-?-?-?-?-?-?-?-?-?-?- 36w 6d 221 lb 117/79 Negative -?-?-?-?-?-?-?-?-?-?-?-?- Negative 160 37 3 -?-?-?-?-?-?-?-?-?-?-?-?- 60 -2 KW- no vb/ lof/regular ctx. good fm. here for cervical check. anxious due to hx of delivery 11/07/23 -?-?-?-?-?-?-?-?-?-?-?-?- 38w 1d 113/62 Negative -?-?-?-?-?-?-?-?-?-?-?-?- Negative 150 38 3 -?-?-?-?-?-?-?-?-?-?-?-?- 60 -2 JV- no lof or dec fm. some brown dc since yesterday an see bloody show on exam. 11/13/23 -?-?-?-?-?-?-?-?-?-?-?-?- 39w 0d 224 lb 2 oz 113/75 Nega tive -?-?-?-?-?-?-?-?-?-?-?-?- Negative 147 38 Cephal[place] 3 -?-?-?-?-?-?-?-?-?-?-?-?- 60 -2 JV- unable to do IOL due to high numbers on L&D. no lof, vaginal bleeding, or dec fm. will try again next week or strip membranes 11/18/23 -?-?-?-?-?-?-?-?-?-?-?-?- 39w 5d 224 lb 2 oz 121/74 Nega tive -?-?-?-?-?-?-?-?-?-?-?-?- Negative 163 39 Cephalic 4 -?-?-?-?-?-?-?-?-?-?-?-?- 50 60 -2 MH-membranes swe pt. No reg CTX. Good FM. Consult KW and to WP for bridget ction. NST FHR Rate Baby A Baseline: 160 Variability:: Moderate Accelerations:: 15 x 15 Decelerations:: None NST Reactive:: Yes FHR Category:: Category I Uterine Activity:: irregular ROS Constitutional Constitutional: Denies change in weight, fatigue, fever(s), headache(s), poor appetite or weakness Eyes Eyes: Denies blurry vision, change in vision, floaters, seeing flashes or spots in vision ENT HEENT: Denies dizziness, headache(s), loss taste/smell or sore throat Cardiovascular Cardiovascular: Denies chest pain, dizziness, dyspnea, irregular heart rhythm, lightheadedness, palpitations or rapid heart rate Respiratory/Chest Respiratory/Chest: Denies change in mental status, chest tightness, cough, dyspnea or breast pain Gastrointestinal Gastrointestinal: Denies anorexia, chewing difficulty, constipation, diarrhea or weight changes Genitourinary Genitourinary: Denies difficulty urinating, dysuria, flank pain, genital pain, urinary frequency or urinary urgency Musculoskeletal Musculoskeletal: Denies back pain, difficulty walking, extremity pain, joint pain, muscle cramps or muscle weakness Integumentary Integumentary: Denies lesions or unusual bruising Neurologic Neurologic: Denies abnormal movements, abnormal speech, dizziness, numbness, seizure-like activity, syncope or weakness Psychiatric Psychiatric: Denies behavioral changes, change in appetite, confusion, depression, homicidal ideation, suicidal ideation or suicidal thoughts Endocrine Endocrinology: Denies excessive sweating, polydipsia or polyuria Hematologic/Lymphatic Hematologic/Lymphatic: Denies anemia Allergic/Immunologic Allergic/Immunologic: Denies itchy eyes, lip swelling, throat swelling, tongue swelling or wheezing Vital Signs Vital Signs Vital Signs: 11/18/23 12:12 11/18/23 12:12 11/18/23 12:12 Pulse Rate 113 H Blood Pressure 125/77 H BP Systolic 125 BP Diastolic 77 Pulse Ox 98 Physical Exam Const alert, oriented x3 and no apparent distress General Appearance: cooperative Orientation / Consciousness: awake HEENT normocephalic Neck full ROM Lymph Lymphatic: no lymphadenopathy noted Chest inspection of chest normal Resp normal respiratory effort and normal air movement Effort and Inspection: able to speak in complete sentences and symmetric chest movement GI soft to palpation and non-tender Inspection: gravid Palpation: soft; Negative for tender external exam normal Back/Spine normal to inspection Extremity normal to inspection and full ROM Skin no rashes or lesions noted Psych mental status grossly normal Appearance: grossly normal Speech: normal speech Labs Labs Labs: Blood Type O POSITIVE Antibody Screen NEGATIVE Hct 34.1 % (37-47) L Hgb 11.1 g/dL (12.0-15.0) L Obstetrics Ultrasound Syphilis Total Ab Non-reactive Rubella IgG Antibody Reactive (Nonreactive) Hep Bs Antigen Non-Reactive (Nonreactive) Hepatitis C Antibody Non-Reactive (Nonreactive) Chlamydia DNA (EMILIANO) Negative (Negative) N.gonorrhoeae DNA (EMILIANO) Negative (Negative) HIV 1&2 Antibody Non-Reactive (Nonreactive) Glucose 1 Hr 50 gm 82 mg/dL (70-140) Group B Strep DNA Negative (Negative) Rhogam given: No Assessment & Plan (1) UTI in : QUALIFIERS: Trimester: second trimester Qualified Code(s): O23.42 - Unspecified infection of urinary tract in , second trimester COMMENT: likely 2 during the . -plan to start prophylactic treatment based on culture pending from 08/07/23- normal maty only (2) History of precipitous delivery: COMMENT: With first baby - water broke at 36 weeks and after 20 minutes started with hard labor, presented to hospital at 7 cm. -plan 39 week IOL if makes it to then because wants an epidural this time. -start cervical exams at 35 weeks, discussed cervical length screening, progesterone only if shortened cervical length (3) Anxiety: COMMENT: stable (4) Supervision of high-risk : QUALIFIERS: Trimester: third trimester Qualified Code(s): O09.93 - Supervision of high risk , unspecified, third trimester COMMENT: PRR, , THERESE 11/20/23, boy,PC Torin, Isma (5) Hx of one miscarriage: COMMENT: 2018 (6) : QUALIFIERS: Weeks of gestation: 39 weeks Qualified Code(s): Z3A.39 - 39 weeks gestation of COMMENT: Neg GBS. discussed genetic & declined afp and carrier testing, NIPT low risk, nl anatomy (7) Encounter for induction of labor: Charges/Coding Multi Select Codes Urinary/Genital Urinary/Genital CPT Codes: No Charge
[2023-11-18] MEDS: Lactated Ringers 1,000 ML 999 ML IV (12:55)
[2023-11-18 12:56] LABS: Absolute Lymphocyte Count 1.57 X10^3/uL (0.83-4.51); Absolute Neutrophil Count 6.6 X10^3/uL (2.0-7.7); Basophil# 0.03 X10^3/uL; Basophil% 0.3 % (0-1); Eosinophil# 0.05 X10^3/uL; Eosinophils% 0.6 % (0-5); Hematocrit 34.6 % (37-47); Hemoglobin 11.4 g/dL (12.0-15.0); Lymphocyte # 1.57 X10^3/ul (0.83-4.51); Lymphocyte % 17.6 % (19-41); Mean Corp Hgb Conc 32.9 g/dL (32-36); Mean Corpuscular Hgb 29.3 pg (27.0-32.0); Mean Corpuscular Volume 88.9 fL (81-99); Mean Platelet Vol. 9.8 fl (6.2-12.0); Monocyte# 0.57 X10^3/uL; Monocyte% 6.4 % (0-10); NRBC Flagged by Analyzer 0 % (0-5); Neutrophil # 6.63 X10^3/uL (2.7-7.7); Neutrophil % 74.4 % (47-70); Platelet Count 250 K/mm3 (150-450); RBC Distribution Width CV 13.2 % (11.6-14.6); RBC Distribution Width SD 42.7 fl (35.1-43.9); Red Blood Count 3.89 M/mm3 (4.2-5.4); White Blood Count 8.9 K/mm3 (4.4-11.0)
[2023-11-18 13:29] LABS: Syphilis Antibodies Non-reactive
[2023-11-18] MEDS: Oxytocin 15 Units/NS 250ml 15 UNITS/250 ML IV.SOLN 2 UNITS IV (14:07)
[2023-11-18] MEDS: Lactated Ringers 1,000 ML 200 ML IV (14:07)
[2023-11-18] MEDS: fentaNYL-bupivacaine (epidural) 100 ML BAG EPIDURAL (14:23)
--- NOTE | 2023-11-18 15:04 | PN_ITS ---
Progress Note comfortable with epidural current tracing: FHT: 140 Moderate variability reactive no decelerations category I tracing [place]: 2-4 Contractions Membranes:AROM clear SVE:6/70/-2 A/P: Continue with position changes Titrate pitocin per protocol Epidural per anesthesia GBS neg Anticipate Dr George aware of above assessment and agrees with plan of care Assessment & Plan Assessment/Plan (1) Encounter for induction of labor: (2) UTI in : QUALIFIERS: Trimester: second trimester Qualified Code(s): O23.42 - Unspecified infection of urinary tract in , second trimester (3) History of precipitous delivery: (4) Anxiety: (5) Hx of one miscarriage: (6) Supervision of high-risk : QUALIFIERS: Trimester: third trimester Qualified Code(s): O09.93 - Supervision of high risk , unspecified, third trimester (7) : QUALIFIERS: Weeks of gestation: 39 weeks Qualified Code(s): Z3A.39 - 39 weeks gestation of Multi Select Codes Urinary/Genital Urinary/Genital CPT Codes: No Charge
[2023-11-18] MEDS: Oxytocin 15 Units/NS 250ml 15 UNITS/250 ML IV.SOLN 83 UNITS IV (17:15)
--- NOTE | 2023-11-18 17:36 | EX.PCM.OBRPT ---
Assessment & Plan (1) Vaginal delivery: COMMENT: KW IOL Angel Watson (2) Encounter for induction of labor: (3) UTI in : QUALIFIERS: Trimester: second trimester Qualified Code(s): O23.42 - Unspecified infection of urinary tract in , second trimester COMMENT: likely 2 during the . -plan to start prophylactic treatment based on culture pending from 08/07/23-normal maty only (4) History of precipitous delivery: COMMENT: With first baby - water broke at 36 weeks and after 20 minutes started with hard labor, presented to hospital at 7 cm. -plan 39 week IOL if makes it to then because wants an epidural this time. -start cervical exams at 35 weeks, discussed cervical length screening, progesterone only if shortened cervical length (5) Anxiety: COMMENT: stable (6) Hx of one miscarriage: COMMENT: 2018 (7) Supervision of high-risk : QUALIFIERS: Trimester: third trimester Qualified Code(s): O09.93 - Supervision of high risk , unspecified, third trimester COMMENT: PRR, , THERESE 11/20/23, DAWIT bowen, Isma (8) : QUALIFIERS: Weeks of gestation: 39 weeks Qualified Code(s): Z3A.39 - 39 weeks gestation of COMMENT: Neg GBS. discussed genetic & declined afp and carrier testing, NIPT low risk, nl anatomy Maternal Data Information THERESE Calculator Estimated Delivery Date Method Current WG Current Estimate 11/20/23 LMP (Certain) 39w 5d Final THERESE: 11/20/23 Final THERESE Source: [place] >20 weeks Gestational age: 39.5 Vaginal Delivery Maternal Presentation Maternal Presentation: Elective Induction Maternal Presentation: Progressed well to 10cm dilated and made steady progress with effective maternal pushing. Delivered the head in ANA presentation. The head was delivered atraumatically and no nuchal cord was identified. The anterior and posterior shoulders delivered without complication followed by the rest of the and the was placed on the maternal abdomen. Delayed cord clamping was employed for approximately 3 minutes. Cord was clamped and cut and gentle traction was applied to the cord and the placenta delivered spontaneously. Immediately following, it was noted to be intact with a 3 vessel cord. The perineum and vagina were inspected and noted to have a first degree laceration which was repaired with 3-0 Vicryl in the usual fashion. EBL was 400cc. Patient and tolerated delivery well. Apgars 9/9. Dr George notified of vaginal delivery and orders reviewed. Physician agrees with current plan of care. Type of Induction: Pitocin Operative Information Date of Procedure: 11/18/23 Pre-Operative Diagnosis: See AP comments Post-Operative Diagnosis: Same Surgery / Procedure Performed: Spontaneous Vaginal Delivery director global intelligence #1: Gail Heredia Type of Anesthesia: Epidural Estimated Blood Loss: 400 Time of Delivery: 17:10 Findings Presentation: Vertex Amniotic Membrane Rupture Type: Artificial Amniotic Fluid Description: Clear Placental Delivery Description: Spontaneous Placenta Disposition: [facility] Cord Vessel Description: 3 Vessels Cord Entanglement: None A Gender: Male (1 minute): 9 (5 minute): 9 Delayed Cord Clamping: Yes Post Vaginal Delivery Medications Given After Delivery: IV Pitocin Episiotomy Description: None Laceration: Periurethral Extnsion/lac Complication Complications: None Multi Select Codes Urinary/Genital Urinary/Genital CPT Codes: 55126 Vaginal Delivery [facility]
--- NOTE | 2023-11-18 17:39 | DCINST_ITS ---
Discharge Instructions Diet Discharge Diet: No restrictions Activity Discharge Activity: Return to Normal Activity May resume sexual activity in: 6-8 weeks Dressing / Incision Call your doctor if you observe: Fever of 101 or Higher, Coldness, Increased Pain, Numbness or Tingling, Change in Color, Inability to urinate, Inability to have a bowel movement, Using more than 1 pad per hour, Shortness of breath, Dizziness, Fainting spells, Swelling in the ankles, Chest pain, Increased palpitations (irregular heartbeat), Calf discomfort and Uncontrolled pain Follow Up Care Please Follow Up With: Gial Heredia CNM When: Please call the office to schedule your follow up appointment in 6 weeks. If you had high blood pressure please call to schedule an appointment in 2 weeks. Test Results: Test results from this visit will be discussed in further detail at your follow- up appointment, if applicable. Discharge Plan Admission Admit Date/Time: 11/18/23 12:02 Attending Provider: Gail Heredia Discharge Orders/Prescriptions Prescriptions: No Action PNV-[facility] 28-1-300 mg capsule 1 cap PO DAILY
[2023-11-19] VITALS (12 sets, daily range): BP systolic 98–144; BP diastolic 60–74; PULSE 99–125; RESP 16; TEMP 36.4–36.8; O2SAT 96–98
[2023-11-19] MEDS: Acetaminophen 500 MG Tablet 1000 MG PO (03:35)
[2023-11-19] MEDS: Ibuprofen 600 MG Tablet PO (06:12)
--- NOTE | 2023-11-19 08:37 | PCM.PN.OB ---
Subjective Subjective Patient doing well without complaints. Tolerating PO. Ambulating and voiding without difficulty. Feeding well. Denies chest pain, shortness of breath, calf pain/swelling, fevers, chills, lightheadedness. Objective Data Objective Data Vital Signs: Vital Signs Temp Pulse Resp BP Pulse Ox O2 Del Method 97.6 F L 99 16 98/64 98 Room Air 11/19/23 07:57 11/19/23 07:57 11/19/23 07:57 11/19/23 07:57 11/19/23 07:57 11/19/23 07:57 Oxygen Delivery Method Room Air Weight: 222 lb Body Mass Index (BMI) 33.7 Intake & Output: Intake and Output for Last 24 Hours 11/17/23 11/18/23 11/19/23 23:59 23:59 23:59 Intake Total 1905.63 / 1905.63 Output Total 800 / 800 400 / 400 Balance 1105.63 / 1105.63 -400 / -400 Lab / Micro Data 11/18/23 12:40 Labs: Laboratory Results - last 24 hr 11/18/23 12:40: WBC 8.9, RBC 3.89 L, Hgb 11.4 L, Hct 34.6 L, MCV 88.9, MCH 29.3, MCHC 32.9, RDW Std Deviation 42.7, RDW Coeff of José Miguel 13.2, Plt Count 250, MPV 9.8, Immature Gran % (Auto) 0.700, Neut % (Auto) 74.4 H, Lymph % (Auto) 17.6 L, Hanson % (Auto) 6.4, Eos % (Auto) 0.6, Baso % (Auto) 0.3, Absolute Neuts (auto) 6.6, Absolute Lymphs (auto) 1.57, Nucleated RBC % 0, Syphilis Total Ab Non-reactive, Blood Type O POSITIVE, Antibody Screen NEGATIVE ROS Constitutional Constitutional: Denies chills, fatigue, fever(s), poor appetite or weakness Eyes Eyes: Denies blurry vision, change in vision, seeing flashes or spots in vision ENT HEENT: Denies dizziness, headache(s), loss taste/smell or sore throat Cardiovascular Cardiovascular: Denies chest pain, dizziness, dyspnea, irregular heart rhythm, palpitations or rapid heart rate Respiratory/Chest Respiratory/Chest: Denies chest tightness, cough, dyspnea or breast pain Gastrointestinal Gastrointestinal: Denies abdominal pain, constipation or vomiting Genitourinary Genitourinary: Denies dysuria or flank pain Musculoskeletal Musculoskeletal: Denies difficulty walking, joint pain, limited range of motion or numbness Neurologic Neurologic: Denies abnormal movements, abnormal speech, dizziness, numbness, seizure-like activity or syncope Psychiatric Psychiatric: Denies anxiety, behavioral changes, change in appetite, confusion, depression or suicidal thoughts Physical Exam Const alert, oriented x3 and no apparent distress General Appearance: cooperative and comfortable Resp normal respiratory effort Cardio regular rate GI normal to inspection, nondistended, normoactive bowel sounds GI Narrative: uterus is firm below umbilicus Palpation: soft Back/Spine no CVA tenderness and thoraco-lumbar ROM normal Extremity normal to inspection, no clubbing, cyanosis or edema, no calf tenderness and no pedal edema Psych mental status grossly normal, thought process normal, cooperative, affect normal, speech normal, activity/motor behavior normal, denies homicidal ideation and denies suicidal ideation Assessment & Plan (1) Vaginal delivery: COMMENT: KW IOL Angel Watson (2) Encounter for induction of labor: (3) UTI in : QUALIFIERS: Trimester: second trimester Qualified Code(s): O23.42 - Unspecified infection of urinary tract in , second trimester COMMENT: likely 2 during the . -plan to start prophylactic treatment based on culture pending from 08/07/23-normal maty only (4) History of precipitous delivery: COMMENT: With first baby - water broke at 36 weeks and after 20 minutes started with hard labor, presented to hospital at 7 cm. -plan 39 week IOL if makes it to then because wants an epidural this time. -start cervical exams at 35 weeks, discussed cervical length screening, progesterone only if shortened cervical length (5) Anxiety: COMMENT: stable (6) Hx of one miscarriage: COMMENT: 2018 (7) Supervision of high-risk : QUALIFIERS: Trimester: third trimester Qualified Code(s): O09.93 - Supervision of high risk , unspecified, third trimester COMMENT: PRR, , THERESE 11/20/23, boy,DAWIT Torin, Isma (8) : QUALIFIERS: Weeks of gestation: 39 weeks Qualified Code(s): Z3A.39 - 39 weeks gestation of COMMENT: Neg GBS. discussed genetic & declined afp and carrier testing, NIPT low risk, nl anatomy PLAN: Plan s/p PPD # 1 1. routine post delivery care 2. breast feeding- support given 3. rh positive 4. 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
--- NOTE | 2023-11-20 10:57 | CASEMGMT ---
Social Work Assessment Labor and Delivery Unit Patient Address:[address] [place], [place] [address] [address] Phone number: [phone] Date of Referral: 11/19/23 Time of Referral:? 1011 Referred By: Dr. Parker Date of Intervention: 11/19/23?? Time of Intervention:? 1530 Reason for Referral:? hx of anxiety and depression Sw completed chart review and acknowledges social work consult due to maternal mental health history. Sw presented to bedside and introduced self to mother of baby (RACHAEL- Heather) and father of baby (FOGanesh- Isma). Sw explained reason for sw involvement and completed psychosocial assessment. History obtained from: medical records, MOB and FOB Household composition: Parents report currently residing in their home is NEYMAR CANO, their 2 year old son, Torin and now baby when ready for discharge. No reported concerns with housing at this time. Patient's parent/guardian status:? ?Parents report that they have been together for 7 years, after being introduced to each other by RACHAEL's step father. No concerns reported of domestic violence or intimate partner violence. Medical History: ?RACHAEL is 33 year old female who is 2, para 1- now 2 following labor and delivery of . RACHAEL received routine care during with [place]. RACHAEL presented to hospital for an induction of labor. RACHAEL delivered baby via vaginal delivery on 11/18/23 at 39 weeks gestation. Baby boy, named Walter Banegas, was born weighing 8lb 11oz with apgars of 9 and 9 at one and five minutes of life, respectfully. Baby will be followed by Dr. Bertrand. RACHAEL is breast feeding and states that it is going well. Educational Status:? Both parents graduated from high school, RACHAEL also obtained her bachelors degree. No problems with reading, learning or comprehension. Financial Status: Both parents are gainfully employed outside of the home. 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 Supplies:?? Parents have obtained all necessary baby supplies, including: car seat, safe sleep space, clothes, diapers and wipes. Childcare/Caregiver(s):? RACHAEL states that when she is working they have friends and family members that provide childcare. Transportation:?? Both parents have their drivers license and reliable means of transportation, no barriers at this time. Programs/Agencies Involved: ?Parents are not connected to any community resources that assist them financially at this time due to being over income. RACHAEL does have a mental health therapist that she has been connected to since she was a teenager at [facility]. ?? Children Services/Legal Issues:??? No history of children services involvement, no issues or concerns requiring referral to be made at this time. Behavioral Health Issues: ??Mental Health History:??MOB states that she has been diagnosed with anxiety and depression. MOB states that FOB also has anxiety and depression, but has not officially been diagnosed. MOB states that she is not prescribed medication and is able to manage her symptoms using healthy coping skills. ? Substance Use History:?MOB denies substance use prior to and during . ? Family History:?Parents deny family history of substance use or significant mental health diagnoses. ? Drug Screens: ?No urine screens completed during / delivery. ? Family/Social Stressors:?Parents deny any issues, concerns or stressors at this time. Support Systems: Parents report they have a lot of supports found in family and friends, along as each other. Depression/Shaken Baby/Safe Sleeping:?Sw educated parents on signs and symptoms of baby blues and depression. Sw explained MOB's predisposed to experiencing mood and anxiety disorders during this period due to her mental health history. MOB expressed understanding and states that she is aware of signs to look out for. FOB states that he would be able to recognize if MOB were struggling and would know how to help and support her. Sw also informed FOB that due him having experience of anxiety and depression he may also experience mood and anxiety symptoms during this period. Sw educated parents on shaken baby prevention and ABCs of safe sleep. Parents express understanding. ASSESSMENT:? MOB and baby admitted following labor and delivery of . MOB with mental health history positive for anxiety and depression. MOB is connected to mental health services and supports and has natural support found in FOB and family members. Parents have obtained everything they need for baby. Parents were open and talkative with sw. MOB was observed to be loving and appropriate with hands on care with baby. Parents also provided list of [facility] resources for their review, literature on mood and anxiety disorders and Help Me Grow. PLAN:? MOB and baby to be discharged when medically ready. ?No other services requested or indicated. Christal Kumar, MANAGER DATABASE ADMINISTRATION, DIRECTOR CUSTOM
== END 2023-11-19 18:50 | disposition home or self-care (01) | DRG 807 ==
PROVIDERS: Obstetrics & Gynecology; Admitting Provider Advanced Practice Midwife; Visit Provider Advanced Practice Midwife
DX: O70.0 First degree perineal laceration during delivery (principal); Z37.0 Single live birth; O99.344 Other mental disorders complicating childbirth; F32.A Depression, unspecified; F41.9 Anxiety disorder, unspecified; Z3A.39 39 weeks gestation of pregnancy; Z87.59 Personal history of other complications of pregnancy, childbirth and the puerperium; Z87.440 Personal history of urinary (tract) infections
CPT/HCPCS: 59025; 59050; 85025; 86780; 86850; 86900; 86901; 99221; J7120; G0378

== ENCOUNTER → 2023-12-30 | Outpatient (CLI) | payer OTHER, SELFPAY ==
[2024-01-02 09:10] LABS: HPV APTIMA, High Risk Negative (Negative)
== END | disposition home or self-care (01) ==
LOC: LABSPEC 12:01
PROVIDERS: Referring Provider Advanced Practice Midwife; Visit Provider Advanced Practice Midwife
DX: Z12.4 Encounter for screening for malignant neoplasm of cervix (principal)
CPT/HCPCS: 87624; 88175; G0145